=== PATIENT | male | born 1950 | race Caucasian/White ===

== ENCOUNTER 2016-08-30 09:21 | Inpatient (IN) | payer OTHER ==
[2016-08-15 10:46] VITALS: BMI 26.0
--- NOTE | 2016-08-15 11:22 | PAT Medication Instructions ---
Service Date Aug 15, 2016. Current Home Medication List Cholecalciferol (Vitamin D3), 1 TAB PO QAM Lactic Acid (Ammonium Lactate) (Amlactin), 1 DOSE TOP DAILY PRN for PRN Meloxicam (Mobic), 15 MG PO DAILY PRN for Pain Metoprolol Succ (Toprol Xl) (Toprol-Xl), 25 MG PO HS Pravastatin (Pravachol ), 20 MG PO QAM Sildenafil Citrate (Viagra), 100 MG PO PRN Medication Instructions For Your Scheduled Surgery - Check with surgeon for instructions: Meloxicam (Mobic), 15 MG PO DAILY PRN for Pain - Hold the following medications the morning of surgery: Sildenafil Citrate (Viagra), 100 MG PO PRN Cholecalciferol (Vitamin D3), 1 TAB PO QAM Lactic Acid (Ammonium Lactate) (Amlactin), 1 DOSE TOP DAILY PRN for PRN - Take the following medications the morning of surgery with a sip of water: Pravastatin (Pravachol ), 20 MG PO QAM - Take the following medications as scheduled the night before surgery: Sildenafil Citrate (Viagra), 100 MG PO PRN Metoprolol Succ (Toprol Xl) (Toprol-Xl), 25 MG PO HS Lactic Acid (Ammonium Lactate) (Amlactin), 1 DOSE TOP DAILY PRN for PRN If you have any questions please call us at [phone] (Madelin Young PA-C) or [phone] or [phone]
--- NOTE | 2016-08-15 11:44 | DIAGNOSTIC IMAGING REPORT ---
CHEST PREADMISSION(PA/LAT) HISTORY: Preop. COMPARISON: None. FINDINGS: The lungs are clear. Cardiac silhouette is normal in size. No pleural effusions. No pneumothorax. IMPRESSION: No acute process. Electronically signed by: Gene Alfaro M.D. 08/15/2016 11:43 AM Dictated Date/Time: 08/15/2016 11:42 AM
[2016-08-15 11:56] LABS: PARTIAL THROMBOPLASTIN RATIO 1.1; PROTHROMBIN TIME (PATIENT) 10.9 SECONDS (9.0-12.0)
[2016-08-15 12:18] LABS: BUN/CREATININE RATIO 16.5 (10-20); CALCIUM 8.6 mg/dl (8.5-10.1); CREATININE 1.1 mg/dl (0.60-1.40); POTASSIUM 4.3 mmol/L (3.5-5.1)
[2016-08-15 12:28] LABS: MEAN CELL VOLUME 88.2 fL (80-100); MEAN CORPUSCULAR HEMOGLOBIN 29.8 pg (25-34); MEAN CORPUSCULAR HGB CONC 33.8 g/dl (32-36); MEAN PLATELET VOLUME 14.2 fL (7.4-10.4); PLATELET COUNT 104 K/uL (130-400); WHITE BLOOD COUNT 4.84 K/uL (4.8-10.8)
[2016-08-15 12:30] LABS: COMPLETE YES; EOSINOPHIL % 0.9 %; LYMPHOCYTE % 16.5 %; NEUTROPHILS % 67.8 %; PLT ESTIMATE DECREASED; VARIANT LYM ABS # 0.55 K/uL; VARIANT LYMPHOCYTE % 11.3 %
--- NOTE | 2016-08-21 10:36 | HISTORY & PHYSICAL EXAMINATION ---
DATE OF ADMISSION: 08/30/2016 CHIEF COMPLAINT: Right hip pain. HISTORY OF PRESENT ILLNESS: A 66-year-old gentleman who presents for surgical treatment of his right hip. About a year and a half history of right hip pain and discomfort, which radiates down to his knee. He describes groin pain. He describes it has progressed over time. He has difficulty putting his shoes and socks on for the past couple years. The more he stands and walks, the more pain he has. He has a that has MS he is having more difficulty taking care of her. He has been treated with anti-inflammatories with minimal relief. He now presents for surgical treatment. PAST MEDICAL HISTORY: 1. Hypertension. 2. BPH. 3. Chronic thrombocytopenia. PAST SURGICAL HISTORY: None. ALLERGIES: No known drug allergies. CURRENT MEDICATIONS: Include metoprolol, Viagra, pravastatin. SOCIAL HISTORY: A 66-year-old male. He is . has MS. FAMILY HISTORY: Noncontributory. REVIEW OF SYSTEMS: Negative for diabetes, neurologic problems, vascular problems, bleeding disorders. Denies any chest pain or shortness of breath. He does have this known history of thrombocytopenia and his platelet count is 104. PHYSICAL EXAMINATION: GENERAL: Reveals a healthy, pleasant, middle-aged male. He looks to be in good health. HEAD, EYES, EARS, NOSE, AND THROAT EXAMINATION: Benign. NECK: Supple. No lymphadenopathy. LUNGS: Clear to auscultation. HEART: Regular rate and rhythm. ABDOMEN: Soft, nontender, nondistended. EXTREMITY EXAMINATION: Grossly neurovascularly intact except as follows: Examination of the right hip and leg reveals the patient walks with a slightly antalgic gait. Leg lengths clinically appear pretty equal. He does have pain with hip motion. He can internally rotate to neutral, external rotation to 20 degrees. Negative straight leg raise. A very small flexion contracture. X-RAYS: X-rays of the right hip were reviewed. It shows advanced right hip DJD. He has got complete loss of his superior joint space. ASSESSMENT: A 66-year-old male with advanced right hip degenerative joint disease that has gotten significantly worse over the past year. I think most of the pain radiating to his knee is coming from his hip. PLAN: We talked about treatment. He would like to have his right hip replacement. The risks and benefits of right total hip replacement were explained to the patient including but not limited to DVT, PE, , infection, neurological injury, vascular injury, bleeding problems, pain, limited range of motion, stiffness, failure to relieve symptoms, incomplete relief of symptoms, need for further surgery in the future, fracture, persistent pain, dislocation, need for revision surgery, etc. The patient understands and desires to proceed. Informed consent was obtained. The patient had preoperative workup. Chest x-ray was normal. EKG showed some sinus bradycardia. Labs were all normal except for slightly low platelet count. We did talk to him about taking his metoprolol the morning of surgery. He is planning to be [facility]. I will see him back 2 weeks postop.
[2016-08-30] VITALS (9 sets, daily range): BP systolic 99–151; BP diastolic 62–77; PULSE 45–57; TEMP 36.4–36.7; O2SAT 94–98; Ht 172.7 cm; Wt 77.4 kg
[~2016-08-30] VITALS: Ht 172.7 cm; Wt 77.4 kg
[~2016-08-30 09:21] MED LIST: ACETAMINOPHEN 500 MG TAB PO SCH; BUPIVACAINE 0.5 % 5 MG/1 ML PF 10ML VIAL ONE; CEFAZOLIN 2000 MG/60 ML D5W 60 ML IV SCH; CHOL1000 PO; FAMOTIDINE 20 MG TAB PO SCH; FENTANYL CITRATE INJ 50 MCG/1 ML 2 ML VIAL ONE; GABAPENTIN 300 MG CAP PO SCH; LACT1LOT3 TOP; LACTATED RINGER'S 1000ML 1,000 ML IV SCH; LACTATED RINGER'S 1000ML IV SCH; MELO7.5T5 PO; METO25TA3 PO; METOCLOPRAMIDE HCL 10 MG TAB PO SCH; MIDAZOLAM HCL 1 MG/ML 2ML VIAL ONE; PRAV20TA PO; PROPOFOL IV EMULSION 10 MG/ML 20 ML VIAL IV ONE; SCOPOLAMINE 1.5 MG TDSY TD SCH; SILD100T PO; TRANEXAMIC ACID INJ 1,000 MG in SODIUM CHLORIDE 0.9% 100ML 100 ML IV SCH
[2016-08-30] MEDS ORDERED: BUPIVACAINE/EPINEPHRINE 0.5% MPF 1:200,000 30 ML VIAL ONE ×2 (09:57→11:15)
[2016-08-30] MEDS ORDERED: BACITRACIN 50000 UNIT VIAL ONE (09:57)
[2016-08-30] MEDS ORDERED: MoRPHine SULFATE PF 1 MG/ML 10 ML AMP/VIAL ONE (11:28)
--- NOTE | 2016-08-30 11:37 | History & Physical Bridge Note ---
H&P Re-Evaluation Bridge Note: I have examined the patient, reviewed the History & Physical and in the interval since the performance of the History & Physical I have noted the following changes of clinical significance: No changes noted
[2016-08-30] MEDS ORDERED: LACTATED RINGER'S 1000ML 500 ML IV PRN (12:47)
[2016-08-30] MEDS ORDERED: NALOXONE HCL INJ 1 MG in SODIUM CHLORIDE 0.9% 1000ML 1,000 ML IV PRN (12:47)
[2016-08-30] MEDS ORDERED: SODIUM CHLORIDE 0.9% 1000ML 1,000 ML IV PRN (12:47)
[2016-08-30] MEDS ORDERED: NALOXONE HCL INJ 0.08 MG in SYRINGE 1.8 ML IV PRN (12:47)
[2016-08-30] MEDS ORDERED: EpHEDrine SULFATE INJ 50 MG/ML AMP ONE (12:49)
[2016-08-30] MEDS ORDERED: EpHEDrine SULFATE INJ 50 MG/ML AMP IV PRN (13:00)
[2016-08-30] MEDS ORDERED: NALOXONE HCL 0.4 MG/1 ML VIAL/CARP IV PRN (13:00)
[2016-08-30] MEDS ORDERED: KETOROLAC TROMETHAMINE 30 MG/ML VIAL IV. PRN (13:00)
[2016-08-30] MEDS ORDERED: MoRPHine SULFATE 2 MG/ML CARP IV PRN (13:00)
[2016-08-30] MEDS ORDERED: NO NARCOTICS OR SEDATIVES SCH (13:00)
[2016-08-30] MEDS ORDERED: DiphenhydrAMINE HCL 50 MG/ML VIAL IV PRN (13:00)
[2016-08-30] MEDS ORDERED: MEPERIDINE HCL 25 MG/ML CARP IV PRN (13:00)
[2016-08-30] MEDS ORDERED: NALBUPHINE HCL INJ 10 MG/ML AMP IV PRN (13:00)
[2016-08-30] MEDS ORDERED: ONDANSETRON INJ 2 MG/ML 2 ML VIAL IV PRN (13:00)
[2016-08-30] MEDS ORDERED: MoRPHine SULFATE PF 1 MG/ML 10 ML AMP/VIAL EPI PRN (13:00)
[2016-08-30] MEDS ORDERED: MAGNESIUM HYDROXIDE SUSP 30 ML UDC PO PRN (13:15)
[2016-08-30] MEDS ORDERED: NON-FORMULARY MEDICATION (Sildenafil Citrate (Viagra) 100 MG) PO SCH (13:15)
[2016-08-30] MEDS ORDERED: SILVER SULFADIAZINE 1% CR 50 GM JAR EXT PRN (13:15)
[2016-08-30] MEDS ORDERED: BISACODYL 10 MG SUPP PR PRN (13:15)
[2016-08-30] MEDS ORDERED: TAMSULOSIN HCL 0.4 MG CAP PO PRN (13:15)
[2016-08-30] MEDS ORDERED: ALUMINUM/MAGNESIUM/SIMETH (MAALOX MAX) 30 ML UDC PO PRN (13:15)
[2016-08-30] MEDS ORDERED: AMMONIUM LACTATE 12% LOTION 225 GM BTL EXT PRN (13:15)
--- NOTE | 2016-08-30 13:15 | [facility] Post Operative Brief Note ---
Immediate Operative Summary Operative Date Aug 30, 2016. Pre-Operative Diagnosis DEGENERATIVE JOINT DISEASE RIGHT HIP Post-Operative Diagnosis SAME PREOP Procedure(s) Performed RIGHT TOTAL HIP ARTHROPLASTY Surgeon DR. Zain CORONEL [employer] Operator Surgeon(s) Aron STATON PAC Estimated Blood Loss 300mL Findings Right Hip DJD Specimens RIGHT HIP BONE AND TISSUE Drains None Anesthesia Spinal Complication(s) None Disposition Recovery Room / PACU
--- NOTE | 2016-08-30 13:42 | DIAGNOSTIC IMAGING REPORT ---
SINGLE VIEW PELVIS; SINGLE VIEW RIGHT HIP CLINICAL HISTORY: Postoperative examination. FINDINGS: An AP portable view of the pelvis and a crosstable lateral portable view of the right hip are obtained. A bipolar right hip arthroplasty is in near-anatomic alignment. 2 cortical lag screws transfix the acetabular cup. No acute fracture is seen. Mild arthritic change is noted in the left hip. There are expected postoperative findings overlying the right hip including skin clips, subcutaneous gas, and soft tissue swelling. A fully catheter is in place. IMPRESSION: Expected postoperative findings status post right hip arthroplasty. No acute fracture is seen. Electronically signed by: Gonzalo Moctezmua M.D. 08/30/2016 1:41 PM Dictated Date/Time: 08/30/2016 1:39 PM
--- NOTE | 2016-08-30 13:58 | Anesthesiology Progress Note ---
Anesthesia Post Op Note Date & Time Aug 30, 2016 at 13:58 Vital Signs Pain Intensity: 0 Vital Signs Past 12 Hours Date Time Temp Pulse Resp B/P Pulse Ox O2 Delivery O2 Flow Rate FiO2 08/30/16 13:50 55 18 124/71 100 Nasal Cannula 2 08/30/16 13:40 51 16 126/69 100 Nasal Cannula 3 08/30/16 13:30 47 16 143/71 100 Nasal Cannula 3 08/30/16 13:20 54 16 137/61 100 Nasal Cannula 3 08/30/16 13:14 36.2 59 16 133/62 99 Mask 10 08/30/16 09:45 36.7 53 20 151/77 98 Room Air Notes Mental Status: alert / awake / arousable, participated in evaluation Pt Amnestic to Procedure: Yes Nausea / Vomiting: adequately controlled Pain: adequately controlled Airway Patency, RR, SpO2: stable & adequate BP & HR: stable & adequate Hydration State: stable & adequate Anesthetic Complications: no major complications apparent
--- NOTE | 2016-08-30 14:46 | OPERATIVE REPORT ---
DATE OF OPERATION: 08/30/2016 SURGEON: Dr. Travis Noriega. NEGATIVE ASSEMBLER: REGINA Alvarez PREOPERATIVE DIAGNOSIS: Right hip degenerative joint disease. POSTOPERATIVE DIAGNOSIS: Same. PROCEDURE PERFORMED: Right ceramic on highly cross-linked polyethylene uncemented total hip arthroplasty. COMPLICATIONS: None. ESTIMATED BLOOD LOSS: 300 mL. FLUID REPLACEMENT: 1750 mL. ANESTHESIA: Spinal. DRAINS: None. SPECIMENS: Right hip femoral head sent for pathology. OPERATIVE INDICATIONS: The patient is a 66-year-old fairly active gentleman who has had an about year and half history of progressively increasing right hip pain and discomfort. It became unresponsive to conservative treatment. It is really affecting his ability to maintain an active lifestyle. X-rays revealed advanced right hip DJD. The patient elected to proceed with operative treatment. OPERATIVE FINDINGS: Operative findings revealed advanced right hip DJD. He had grade 4 [id number] disease of the femoral head and acetabulum. Not a lot of osteophytes. Moderate size joint effusion. OPERATIVE IMPLANTS: Operative implants consisted of: 1. A Biomet G7 size 54-mm acetabular shell. 2. An apex hole eliminator. 3. A 6.5 cancellous acetabular screws, one 35 mm length and one at 20 mm in length. 4. A highly cross-linked polyethylene liner with a 54 mm outer diameter, 36 mm inner diameter with a hidalgo placed very inferior and posterior. 5. A DePuy size 12 small stature AML femoral stem. 6. A +5/36 mm ceramic articular ball. OPERATIVE PROCEDURE: The patient was taken to the operating room, identified and placed on the operating table in the supine position. All contact areas were appropriately padded. IV antibiotics were provided by the anesthesia team. A spinal anesthetic had been implemented in the holding area. Way catheter was placed in sterile fashion. The patient was then placed in the left lateral decubitus position. An axillary roll was placed. Stulberg hip positioner was used for positioning. Right hip and leg were then prepped and draped in the usual sterile fashion. A posterolateral approach to the right hip was then performed through a curvilinear incision centered over the greater trochanter. Sharp dissection was carried out through the subcutaneous tissue down to the level of the IT band and gluteal fascia. The IT band and gluteal fascia were then incised longitudinally in line with skin incision. The underlying greater trochanteric bursa was excised. The piriformis and external rotators were tagged and taken off the posterior aspect of the femur. Great care was taken throughout the procedure to protect the sciatic nerve at all times. Posterior capsulotomy was then performed leaving a large flap for later repair. The hip was internally rotated and dislocated. Femoral neck osteotomy cut was made with the final cut 14 mm above the lesser trochanter. The femoral head was removed and sent for pathology. The femur was retracted anteriorly. Attention was then drawn to the acetabulum. The acetabular labrum was excised. The pulvinar fat was excised. Sequential reaming of the acetabulum was then performed beginning with a size 45 and progressing up to a 53. A 54-mm Biomet G7 acetabular shell was then placed in about 40 degrees of lateral opening and 20 degrees of anteversion. It was fixed with two 6.5 cancellous acetabular screws. A trial liner was placed. Attention was then drawn to the femur. The proximal femur was entered with cookie cutter followed by canal finder and lateralizing reamer. Sequential reaming of the femur was then performed beginning with a size 9 and progressing up to 11.5. We really got pretty good chatter at 11. We then broached beginning with a size 10.5 small broach and then into the 12 small. We got good metaphyseal fit. We then trialed the hip. The +5/36 mm articular ball seemed to provide appropriate leg lengths and soft tissue tension. It was fully stable in full extension and external rotation, flexion to 90 degrees, and internal rotation to about [address] a hidalgo very inferior and posterior to maximize his stability in flexion. Attention was then drawn toward placement of the permanent components. All trial components were removed. An apex hole eliminator was placed. A highly cross-linked polyethylene liner with a hidalgo placed inferior and posterior was then placed. A DePuy 12 small stature AML femoral stem was impacted in position. A +5/36 mm ceramic articular ball was placed. Hip was located and once again found to be stable. Attention was then drawn toward closing. The wound was irrigated with copious amounts of pulsatile lavage solution. I did inject locally with 60 mL of 0.5% Marcaine with epinephrine. The posterior capsule and external rotators were repaired through drill holes in the posterior trochanter with #2 Ti-Cron suture. The IT band and gluteal fascia were then closed with #1 PDS suture in running fashion. The subcutaneous tissue was then closed with 2 layers, the deep layer #1 Vicryl suture and the subcutaneous tissue with 2-0 Dexon suture in a buried interrupted fashion. Skin was then closed with skin carter. Leg was then cleaned and dried and a sterile dressing with Xeroform, 4 x 4, ABD pad and foam tape was applied. The patient then transferred to the recovery room in stable condition. The patient tolerated the procedure well with no complications. All needle and sponge counts were correct at the end of the operation. I attest to the content of the Intraoperative Record and any orders documented therein. Any exceptio ns are noted below.
[2016-08-30] MEDS: CHECK SCOPOLAMINE PATCH PLACEMENT SCH ×2 (15:47→23:55)
[2016-08-30] MEDS: D5W AND 1/2NSS + 20MEQ KCL 1,000 ML IV SCH ×2 (15:47→23:55)
--- NOTE | 2016-08-30 15:59 | PROGRESS NOTE ---
DATE: 08/30/2016 DATE: 08/30/2016. SUBJECTIVE: A 66-year-old gentleman postop from a right total hip replacement. He is doing well. Not having any pain yet. No chest pain or shortness of breath. Not feeling dizzy or lightheaded. OBJECTIVE: VITAL SIGNS: Temperature is 36.4. Vital signs stable. PHYSICAL EXAMINATION: GENERAL: Reveals a healthy, pleasant, middle-aged male. He is sitting up in bed, looks pretty comfortable. LUNGS: Clear to auscultation. HEART: Regular rate and rhythm. ABDOMEN: Soft, nontender, nondistended. EXTREMITIES: Grossly neurovascularly intact except as follows: Examination of the right lower extremity reveals the leg to be well aligned. Leg lengths were equal. Hip is located. He can dorsiflex and plantarflex his foot appropriately. He is neurologically intact. X-RAYS: X-rays of the right hip from recovery room were reviewed. It shows right uncemented total hip arthroplasty. The components looked to be in good position. No signs of problems. ASSESSMENT: A 66-year-old gentleman postop from a right total hip replacement, doing well. Hip is located. He is neurologically intact. Pain is controlled. PLAN: 1. DVT prophylaxis including thigh-high TEDs, SCDs, and aspirin twice a day. 2. PT/OT. Weight bear as tolerated. Right total hip protocol. 3. IV antibiotics x24 hours. 4. Pain control. Doing well with current pain regimen. 5. Disposition. He is planning to be discharged to home likely with some home health once adequately recovered.
[2016-08-30] MEDS: FERROUS GLUCONATE 324 MG TAB PO SCH (17:58)
[2016-08-30] MEDS: KETOROLAC TROMETHAMINE 15 MG/ML VIAL IV. SCH ×2 (17:59→23:55)
[2016-08-30] MEDS ORDERED: PNEUMOCOCCAL ADMINISTRATION CHARGE ONE (18:30)
[2016-08-30] MEDS ORDERED: PNEUMOCOCCAL POLYSACCHARIDES 25 MCG/0.5 ML VIAL/SYR IM. ONE (18:30)
[2016-08-30] MEDS ORDERED: TRANEXAMIC ACID INJ 1,000 MG in SODIUM CHLORIDE 0.9% 100ML 100 ML IV SCH (19:00)
[2016-08-30] MEDS ORDERED: METOPROLOL SUCC 25MG EXT REL TAB PO SCH (21:00)
[2016-08-30] MEDS: ASPIRIN 325 MG ECTAB PO SCH (21:01)
[2016-08-30] MEDS: DOCUSATE SODIUM 100 MG CAP PO SCH (21:01)
[2016-08-30] MEDS: CEFAZOLIN IV 1,000 MG in DEXTROSE 5% 50ML 50 ML IV SCH (21:02)
[2016-08-30] MEDS: ACETAMINOPHEN 500 MG TAB PO SCH (21:02)
[2016-08-31] VITALS (9 sets, daily range): BP systolic 110–120; BP diastolic 60–61; PULSE 57–59; TEMP 36.3–36.7; O2SAT 86–98
[2016-08-31] MEDS: CEFAZOLIN IV 1,000 MG in DEXTROSE 5% 50ML 50 ML IV SCH (03:56)
[2016-08-31] MEDS: KETOROLAC TROMETHAMINE 15 MG/ML VIAL IV. SCH ×2 (05:52→11:28)
[2016-08-31] MEDS: ACETAMINOPHEN 500 MG TAB PO SCH (05:52)
[2016-08-31] MEDS ORDERED: DiphenhydrAMINE HCL 50 MG/ML VIAL IV PRN (06:00)
[2016-08-31] MEDS ORDERED: MoRPHine SULFATE 2 MG/ML CARP IV PRN (06:00)
[2016-08-31] MEDS ORDERED: DC INTRASPINAL MORPHINE SCH (06:00)
[2016-08-31] MEDS ORDERED: OXYCODONE HCL IR 5 MG TAB (IMMEDIATE RELEASE) PO PRN (06:00)
[2016-08-31] MEDS ORDERED: ZOLPIDEM TARTRATE 5 MG TAB PO PRN (06:00)
[2016-08-31] MEDS ORDERED: ONDANSETRON INJ 2 MG/ML 2 ML VIAL IV PRN (06:00)
[2016-08-31] MEDS ORDERED: METOCLOPRAMIDE HCL INJ 5 MG/ML 2 ML VIAL IV PRN (06:00)
[2016-08-31 06:47] LABS: BUN/CREATININE RATIO 12.3 (10-20); CALCIUM 7.5 mg/dl (8.5-10.1); CREATININE 1.1 mg/dl (0.60-1.40); POTASSIUM 4.4 mmol/L (3.5-5.1)
[2016-08-31 06:51] LABS: HEMATOCRIT 37.7 % (42-52); MEAN CELL VOLUME 89.8 fL (80-100); MEAN CORPUSCULAR HEMOGLOBIN 29.5 pg (25-34); MEAN CORPUSCULAR HGB CONC 32.9 g/dl (32-36); MEAN PLATELET VOLUME 13.3 fL (7.4-10.4); PLATELET COUNT 92 K/uL (130-400); WHITE BLOOD COUNT 6.97 K/uL (4.8-10.8)
[2016-08-31 06:54] LABS: BASO % 0.1 %; BASO ABS # 0.01 K/uL (0-0.2); COMPLETE YES; IG% 0.1 %; LARGE PLATELETS 1+; LYMPH % 6.5 %; LYMPH ABS # 0.45 K/uL (1.2-3.4); MONO % 5.7 %; NEUT % 86.6 %; PLT ESTIMATE DECREASED
[2016-08-31] MEDS: CHECK SCOPOLAMINE PATCH PLACEMENT SCH (08:00)
[2016-08-31] MEDS ORDERED: RXC5 PO (08:03)
[2016-08-31] MEDS ORDERED: ACET-1138 PO (08:03)
[2016-08-31] MEDS ORDERED: ASPEC325 PO (08:03)
--- NOTE | 2016-08-31 08:05 | Discharge Instructions ---
Discharge Instructions Date of Service Aug 31, 2016. Admission Reason for Admission: Right Hip Degenerative Joint Disease Discharge Discharge Diagnosis / Problem: Right HIp Replacement Discharge Goals Goal(s): Decrease discomfort, Improve function, Increase independence, Improve disease control, Therapeutic intervention Activity Recommendations Activity Limitations: per Instructions/Follow-up section (Total Hip PRecautions ) Weightbearing Status: Right weightbearing . Instructions / Follow-Up Instructions / Follow-Up ACTIVITY RECOMMENDATIONS: Physical Therapy: * Aggressive physical therapy is not usually needed. You will learn to take care of yourself safely and walk. * Follow the "Hip Precautions Instructions." * In some cases, the family welfare social work professor at the hospital will arrange to have a therapist come to your house for the first couple of weeks to help you learn these skills. * You need to practice on your own or with the help of a family member as needed. * When you learn these skills, most of the therapy can be done on your own. Home Exercise: * You were shown a series of exercises in the hospital. Do these exercises three to four times each day including the exercises you were shown in physical therapy. Walking: * Get up and walk several times each day. For the first four weeks, try not to stand or walk for more than one hour at a time. If you do stand or walk for more than one hour, you will not hurt anything, but your leg will likely swell. * As you feel comfortable, you may change from the walker or crutches to a cane and then to independent walking. MEDICATIONS: New Medicine: * You will likely be taking one or more of these medicines: 1. Oxycodone - Take, as directed, when you need it, every four to six hours to control your pain. 2. Aspirin - Thins your blood to lessen the chance of forming a blood clot. * The most common side effects of pain medicine and iron are nausea and constipation. If nausea or constipation is too much of a problem or if you have any questions about your new medicines or doses, call [facility] at [phone]. We will try to help you manage these issues. VERY IMPORTANT TO READ AND REVIEW" Pain: * The immediate post-operative period after hip replacement surgery is often quite painful. * You are given a prescription for pain medicine. You should take it, as directed, when you need it, especially before physical therapy and before going to bed. Pain that interferes with sleep is very common and can last several months. * You will likely need pain medicine for the first two to four weeks. It will not stop all of the pain. The pain will lessen and as you feel better, you may change to milder pain medicine such as Tylenol. * The most common side effects of pain medicine are nausea and constipation, so don't take more than you need. SPECIAL CARE INSTRUCTIONS: TEDs/Elastic Stockings: * The white elastic stockings help limit swelling and prevent blood clots from forming in your legs. The more you wear them, the more they work. * Wear them for six weeks. Prevention of Infection: * Take antibiotics one hour before any dental cleaning, dental work, urological procedure, gastrointestinal procedure or any invasive surgery in order to prevent your new joint from getting infected. * You may get the antibiotics from the doctor performing the procedure or you may call our office at before and we will call in a prescription to the pharmacy of your choice. Things to Watch For: * Drainage from the incision site that occurs more than one week after your surgery. * Severely increased leg pain or swelling. * Increased redness at the incision site. * Fever above 102 degrees Fahrenheit. * Unusual chest pain or shortness of breath. * Unusual pain or burning with urination. Call [facility] at with any of the above problems or if you have any questions about your medicines or recovery. FOLLOW UP VISIT: Make an appointment to see your doctor for approximately two weeks after surgery for a progress check and staple removal by calling the office at . Current Hospital Diet Patient's current hospital diet: Regular Diet Discharge Diet Recommended Diet: Regular Diet Procedures Procedures Performed: RIGHT TOTAL HIP ARTHROPLASTY Pending Studies Studies pending at discharge: no Medical Emergencies . Who to Call and When: Medical Emergencies: If at any time you feel your situation is an emergency, please call [phone] immediately. . Non-Emergent Contact Non-Emergency issues call your: Surgeon . "Provider Documentation" section prepared by Travis Noriega. VTE Core Measure Inpt VTE Proph given/why not?: Other Anticoagulation, T.E.D. Stockings, SCD's
--- NOTE | 2016-08-31 08:36 | PROGRESS NOTE ---
DATE: 08/31/2016 DATE: 08/31/2016. SUBJECTIVE: A 66-year-old gentleman postop day 1 from right hip replacement. He is doing well. He denies any significant pain. No chest pain or shortness of breath. Not feeling dizzy or lightheaded. OBJECTIVE: VITAL SIGNS: Temperature 36.3. Vital signs stable. PHYSICAL EXAMINATION: GENERAL: Reveals a healthy, pleasant, middle-aged male. He is lying in bed and looks comfortable. LUNGS: Clear to auscultation. HEART: Regular rate and rhythm. ABDOMEN: Soft, nontender, nondistended. EXTREMITY EXAMINATION: Grossly neurovascularly intact except as follows: Examination of the right lower extremity reveals the leg to be well aligned. Dressing is clean, dry and intact. His hip is located. He is neurologically intact. LABORATORY DATA: Hemoglobin 12.4, hematocrit 37.7. Electrolytes are stable. ASSESSMENT: A 66-year-old gentleman postop day 1 from right total hip replacement, doing well. His pain is controlled. Hip is located. He is neurologically intact. PLAN: 1. DVT prophylaxis including thigh-high TEDs, SCDs, and aspirin twice a day. 2. PT/OT. Weightbearing as tolerated. Right total hip protocol. 3. Pain control. Doing well with current pain regimen. 4. Disposition: Plan to discharge to home with some home health once adequately recovered.
[2016-08-31] MEDS: FERROUS GLUCONATE 324 MG TAB PO SCH (08:40)
[2016-08-31] MEDS: D5W AND 1/2NSS + 20MEQ KCL 1,000 ML IV SCH (08:40)
[2016-08-31] MEDS: ASPIRIN 325 MG ECTAB PO SCH (08:40)
[2016-08-31] MEDS: DOCUSATE SODIUM 100 MG CAP PO SCH (08:40)
[2016-08-31] MEDS ORDERED: MULTIVITAMIN TAB PO SCH (09:00)
[2016-08-31] MEDS ORDERED: TAPENTADOL ER 50 MG TABCR PO SCH (09:00)
[2016-08-31] MEDS ORDERED: PANTOprazole SOD 40 MG TAB PO SCH (09:00)
[2016-08-31] MEDS ORDERED: CHOLECALCIFEROL 400 INTER.UNIT TAB PO SCH ×2 (09:00)
[2016-08-31] MEDS ORDERED: PRAVASTATIN SOD 20 MG TAB PO SCH (09:00)
--- NOTE | 2016-09-04 15:41 | DISCHARGE SUMMARY ---
ADMITTING PHYSICIAN AND SURGEON: Dr. Noriega. ADMITTING DIAGNOSIS: Right hip degenerative joint disease. SURGERY PERFORMED: Right total hip arthroplasty. SECONDARY DIAGNOSES: Includes hypertension, benign prostatic hypertrophy, chronic thrombocytopenia. HISTORY AND PHYSICAL EXAMINATION: Well documented in the patient's chart. HOSPITAL COURSE: The patient was admitted on 08/30/2016 underwent total hip arthroplasty. He tolerated procedure well. There were no complications. He was transferred to the PACU postoperatively and later to the orthopedic floor for further care. He was given Ancef for antibiotic prophylaxis, CEHLSEY stockings, SCDs and aspirin for DVT prophylaxis. Hemoglobin, hematocrit and vital signs were monitored during his hospital stay and remained stable. He did not require any blood transfusions. There were no complications. By postoperative day 1, he was tolerating a general diet, pain was controlled with oral pain medicine. He was participating in physical therapy and had no signs or symptoms of deep vein thrombosis. On postop day 1, he was discharged home and set up with home health services. He was given printed discharge instructions including prescriptions for Extra-Strength Tylenol, aspirin 325 mg b.i.d., oxycodone. Continue his home medicines. Continue physical therapy, weightbearing as tolerated, CHELSEY stockings, total hip precautions and follow up in 10-12 days or sooner if there are problems or concerns.
== END 2016-08-31 11:49 | disposition home health service (06) | DRG 470 ==
LOC: ENRESERVTM → ENRESERVDT → C.ACU 09:21 → C.3E 11:20
PROVIDERS: ADMIT Orthopaedic Surgery Sports Medicine; ATTEND Orthopaedic Surgery Sports Medicine
PROC: 0SR904A Replacement of Right Hip Joint with Ceramic on Polyethylene Synthetic Substitute, Uncemented, Open Approach (ICD-10-PCS; principal; 2016-08-30 11:15)
DX: M16.11 Unilateral primary osteoarthritis, right hip (principal); I10 Essential (primary) hypertension; N40.0 Benign prostatic hyperplasia without lower urinary tract symptoms; D69.6 Thrombocytopenia, unspecified

== ENCOUNTER 2016-08-31 21:12 | Inpatient (IN) | payer OTHER ==
[~2016-08-31] VITALS: Ht 172.7 cm; Wt 78.9 kg
[~2016-08-31 21:12] MED LIST changes: +ACET-1138 PO; -ACETAMINOPHEN 500 MG TAB PO SCH; +ASPEC325 PO; -BUPIVACAINE 0.5 % 5 MG/1 ML PF 10ML VIAL ONE; -CEFAZOLIN 2000 MG/60 ML D5W 60 ML IV SCH; -FAMOTIDINE 20 MG TAB PO SCH; -FENTANYL CITRATE INJ 50 MCG/1 ML 2 ML VIAL ONE; -GABAPENTIN 300 MG CAP PO SCH; -LACTATED RINGER'S 1000ML 1,000 ML IV SCH; -LACTATED RINGER'S 1000ML IV SCH; -METOCLOPRAMIDE HCL 10 MG TAB PO SCH; -MIDAZOLAM HCL 1 MG/ML 2ML VIAL ONE; -PROPOFOL IV EMULSION 10 MG/ML 20 ML VIAL IV ONE; +RXC5 PO; -SCOPOLAMINE 1.5 MG TDSY TD SCH; -TRANEXAMIC ACID INJ 1,000 MG in SODIUM CHLORIDE 0.9% 100ML 100 ML IV SCH
[2016-08-31] MEDS ORDERED: OPTIRAY 320 IV PRN (21:30)
[2016-08-31 21:51] LABS: VEN BLOOD GAS BASE EXCESS 1.2 mmol/L; VENOUS BLOOD GAS PCO2 44 mmHg (38.0-50.0); VENOUS BLOOD GAS PO2 29 mmHg
--- NOTE | 2016-08-31 21:53 | DIAGNOSTIC IMAGING REPORT ---
CHEST ONE VIEW PORTABLE CLINICAL HISTORY: Acute change in mental status COMPARISON STUDY: 08/15/2016 FINDINGS: The heart is at the upper limits of normal in size. There is no lobar consolidation. There is no overt failure. There are no pleural effusions. Minimally increased markings at the level of the left cardiophrenic angle, likely represent a summation of fat pad and atelectatic change.[ IMPRESSION: No active disease in the chest. Electronically signed by: Gokul Peralta M.D. 08/31/2016 9:51 PM Dictated Date/Time: 08/31/2016 9:50 PM
[2016-08-31 21:57] LABS: ISTAT CREATININE 1.1 mg/dl (0.6-1.3); ISTAT HEMOGLOBIN 11.9 g/dl (14.0-18.0); ISTAT IONIZED CALCIUM 1.09 mmol/l (1.12-1.32)
[2016-08-31 21:57] LABS: INR 1.2 (0.9-1.1); PARTIAL THROMBOPLASTIN RATIO 1.2; PROTHROMBIN TIME (PATIENT) 13.1 SECONDS (9.0-12.0)
[2016-08-31 22:04] LABS: BUN/CREATININE RATIO 14.8 (10-20); CALCIUM 7.7 mg/dl (8.5-10.1); CREATININE 1.2 mg/dl (0.60-1.40); POTASSIUM 4.3 mmol/L (3.5-5.1)
[2016-08-31 22:10] LABS: HEMATOCRIT 36.2 % (42-52); MEAN CELL VOLUME 88.1 fL (80-100); MEAN CORPUSCULAR HEMOGLOBIN 29.9 pg (25-34); PLATELET COUNT 90 K/uL (130-400); RED BLOOD COUNT 4.11 M/uL (4.7-6.1); WHITE BLOOD COUNT 8.96 K/uL (4.8-10.8)
[2016-08-31 22:11] LABS: BASO % 0.1 %; BASO ABS # 0.01 K/uL (0-0.2); COMPLETE YES; EOS % 0.7 %; IG% 0.1 %; LARGE PLATELETS 1+; LYMPH % 5.6 %; MONO % 5.8 %; NEUT % 87.7 %; PLT ESTIMATE DECREASED
--- NOTE | 2016-08-31 22:16 | DIAGNOSTIC IMAGING REPORT ---
CT HEAD WITHOUT CONTRAST (CT) CLINICAL HISTORY: Acute change in mental status COMPARISON STUDY: No previous studies for comparison. TECHNIQUE: Axial CT of the brain is performed from the vertex to the skull base. IV contrast was not administered for this examination. CT DOSE: 537.48 mGy.cm FINDINGS: No intra or extra-axial mass lesions are visualized. There is no CT evidence of acute cortical infarction. There is no evidence of midline shift. There is no acute hemorrhage. No calvarial fractures are visualized. There are minimal white matter hypodensities likely on a small vessel basis. There is no evidence of pathologic ventricular dilatation. There is no evidence of acute sinusitis IMPRESSION: No acute intracranial findings Electronically signed by: Gokul Peralta M.D. 08/31/2016 10:15 PM Dictated Date/Time: 08/31/2016 10:14 PM
[2016-08-31 22:20] LABS: URINE APPEARANCE CLEAR (CLEAR); URINE BILIRUBIN NEG (NEG); URINE COLOR YELLOW; URINE NITRITE NEG (NEG); URINE SPECIFIC GRAVITY 1.011 (1.000-1.030); UROBILINOGEN NEG (NEG); ZZUR CULT IF INDIC CLEAN CATCH NO
--- NOTE | 2016-08-31 22:24 | DIAGNOSTIC IMAGING REPORT ---
CT ANGIOGRAM OF THE CHEST CLINICAL HISTORY: Hypoxia COMPARISON STUDY: Chest x-ray dated 08/31/2016 TECHNIQUE: Following the IV administration of 111 mL of Optiray-320, CT angiogram of the thorax was performed from the thoracic inlet to the lung bases utilizing the pulmonary embolus protocol. Images are reviewed in the axial, sagittal, and coronal planes. IV contrast was administered without complication. MIP imaging was performed. CT DOSE: 294.62 mGy.cm FINDINGS: There is cholelithiasis. There is 11 mm hypodensity within the right hepatic lobe. There are borderline enlarged hilar lymph nodes. There is no pathologic mediastinal or axillary lymphadenopathy. There was no evidence of thoracic aortic dilatation. There were no pulmonary artery filling defects to indicate acute pulmonary embolism. There are small bilateral pleural effusions. There are dependent atelectatic changes. There is calcified granuloma within the left apex. There is an ill-defined 6 mm pleural-based nodule within the right upper lobe. There is a small area of right middle lobe perihilar consolidation, likely inflammatory. IMPRESSION: 1. No CT evidence of acute pulmonary embolism 2. Area of right middle lobe perihilar consolidation, likely inflammatory 3. Small bilateral pleural effusions and bibasal atelectasis 4. Borderline enlarged hilar lymph nodes 5. 6 mm pleural-based right upper lobe pulmonary nodule 6. Cholelithiasis 7. A 3 month follow-up CT scan is recommended, to reevaluate the 6 mm right upper lobe pulmonary nodule, and right perihilar consolidation with adjacent prominent lymph nodes. Electronically signed by: Gokul Peralta M.D. 08/31/2016 10:23 PM Dictated Date/Time: 08/31/2016 10:16 PM
[2016-08-31 22:27] LABS: MANUAL MICROSCOPIC REQUIRED? NO; REVIEW REQ? NO
[2016-08-31 22:30] LABS: VEN BLD GAS O2 SATURATION < 60.0 %
[2016-08-31] MEDS ORDERED: ASPIRIN 81 MG CHEW PO STA (22:51)
[2016-08-31] MEDS ORDERED: SODIUM CHLORIDE 0.9% 1000ML 1,000 ML IV STA (22:51)
[2016-09-01] VITALS (9 sets, daily range): BP systolic 113–140; BP diastolic 61–79; PULSE 64–80; TEMP 36.5–36.7; O2SAT 93–99; Ht 172.7 cm; Wt 78.9 kg
--- NOTE | 2016-09-01 00:26 | EMERGENCY ROOM VISIT NOTE ---
History Report prepared by Ana: Constanza Cortes Under the Supervision of: Dr. Angel Squires D.O. 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 The patient came to the ED via ambulance from home. Per nursing staff, EMS reported that upon their arrival the patient's oxygen saturation was in the low 80s on room air. Nursing staff reports that upon arrival to the ED, the patient's oxygen saturation was 83% on room air. The patient had his right hip replaced yesterday and he was discharged this morning. The patient states that he feels like he was doing well. He states that he was sitting on the recliner and falling asleep watching TV, so he is not sure what prompted his to call the ambulance. He has not taken anything other than Tylenol for the pain because he has not felt that he needed it. Per nursing staff, the patient's came home and found that he had an altered mental status, slurred speech, and confusion. The patient denies cough, rhinorrhea, sore throat, chest pain, shortness of breath, abdominal pain, and any weakness of his arms or legs. Additionally, the patient experienced nausea and vomiting two days ago, but nothing since then. The patient also denies starting any new medications recently. He also denies any recent trauma to his head. Source of History: patient, EMS, nursing staff Onset: SENIOR COMPENSATION ANALYST Position: head Quality: other (altered mental status) Timing: other (sudden) Associated Symptoms: No SOB, No abdominal pain, No chest pain, No cough, No sorethroat, No weakness Note: slurred speech, no rhinorrhea Review of Systems See HPI for pertinent positives & negatives. A total of 10 systems reviewed and were otherwise negative. Past Medical & Surgical Medical Problems: (1) Right Hip DJD Family History Angina Diabetes mellitus Social History Smoking Status: Never Smoker Marital Status: Housing Status: lives with family Current/Historical Medications Scheduled Acetaminophen (Tylenol Extra Strength), 1,000 MG PO Q8 Aspirin (Aspirin), 325 MG PO BID Cholecalciferol (Vitamin D3), 1 TAB PO QAM Metoprolol Succ (Toprol Xl) (Toprol-Xl), 25 MG PO HS Pravastatin (Pravachol ), 20 MG PO QAM Sildenafil Citrate (Viagra), 100 MG PO PRN Scheduled PRN Lactic Acid (Ammonium Lactate) (Amlactin), 1 DOSE TOP DAILY PRN for PRN Meloxicam (Mobic), 15 MG PO DAILY PRN for Pain Oxycodone HCl (Oxycodone HCl), 5 MG PO Q4H PRN for Pain Allergies Coded Allergies: NO KNOWN DRUG ALLERGIES (Verified Allergy, Unknown, NKDA, 08/30/16) Physical Exam Vital Signs Date Time Temp Pulse Resp B/P Pulse Ox O2 Delivery O2 Flow Rate FiO2 08/31/16 22:18 92 20 169/93 94 Nasal Cannula 2.0 08/31/16 21:24 81 08/31/16 21:16 96 Nasal Cannula 2.0 08/31/16 21:15 37.0 77 16 132/73 83 Room Air Physical Exam GENERAL: alert, sitting up in bed on nasal cannula oxygen, well appearing, well nourished, no acute distress, non-toxic EYE EXAM: normal conjunctiva, PERRL and EOM's intact OROPHARYNX: no exudate, no erythema, lips, buccal mucosa, and tongue normal and mucous membranes are moist NECK: supple, no nuchal rigidity, no adenopathy, non-tender LUNGS: Clear to auscultation. Normal chest wall mechanics HEART: no murmurs, S1 normal and S2 normal ABDOMEN: abdomen soft, non-tender, normo-active bowel sounds, no masses, no rebound or guarding. BACK: Back is symmetrical on inspection and there is no deformity, no midline tenderness, no CVA tenderness. SKIN: no rashes and no bruising UPPER EXTREMITIES: upper extremities are grossly normal. LOWER EXTREMITIES: No pitting edema, surgical dressing over right hip. NEURO EXAM: Normal sensorium, cranial nerves II-XII intact, normal speech, no weakness of arms. No drift. Finger to nose intact. Gross sensation intact. Medical Decision & Procedures ER Provider Diagnostic Interpretation: Xray results per the radiologist and my interpretation. Other results have been interpreted by the radiologist and reviewed by me. CHEST ONE VIEW PORTABLE IMPRESSION: No active disease in the chest. Electronically signed by: Gokul Peralta M.D. 08/31/2016 9:51 PM Dictated Date/Time: 08/31/2016 9:[address] HEAD WITHOUT CONTRAST (CT) IMPRESSION: No acute intracranial findings Electronically signed by: Gokul Peralta M.D. 08/31/2016 10:15 PM Dictated Date/Time: 08/31/2016 10:[address] ANGIOGRAM OF THE CHEST IMPRESSION: 1. No CT evidence of acute pulmonary embolism 2. Area of right middle lobe perihilar consolidation, likely inflammatory 3. Small bilateral pleural effusions and bibasal atelectasis 4. Borderline enlarged hilar lymph nodes 5. 6 mm pleural-based right upper lobe pulmonary nodule 6. Cholelithiasis 7. A 3 month follow-up CT scan is recommended, to reevaluate the 6 mm right upper lobe pulmonary nodule, and right perihilar consolidation with adjacent prominent lymph nodes. Electronically signed by: Gokul Peralta M.D. 08/31/2016 10:23 PM Dictated Date/Time: 08/31/2016 10:16 PM Laboratory Results 08/31/16 21:34 Red Blood Count 4.11, Mean Corpuscular Volume 88.1, Mean Corpuscular Hemoglobin 29.9, Mean Corpuscular Hemoglobin Concent 34.0, Mean Platelet Volume 13.0, Neutrophils (%) (Auto) 87.7, Lymphocytes (%) (Auto) 5.6, Monocytes (%) (Auto) 5.8, Eosinophils (%) (Auto) 0.7, Basophils (%) (Auto) 0.1, Neutrophils # (Auto) 7.86, Lymphocytes # (Auto) 0.50, Monocytes # (Auto) 0.52, Eosinophils # (Auto) 0.06, Basophils # (Auto) 0.01 08/31/16 21:34 Test 08/31/16 21:34 08/31/16 21:38 08/31/16 21:50 White Blood Count 8.96 K/uL (4.8-10.8) Red Blood Count 4.11 M/uL (4.7-6.1) Hemoglobin 12.3 g/dL (14.0-18.0) Hematocrit 36.2 % (42-52) Mean Corpuscular Volume 88.1 fL (80-100) Mean Corpuscular Hemoglobin 29.9 pg (25-34) Mean Corpuscular Hemoglobin Concent 34.0 g/dl (32-36) Platelet Count 90 K/uL (130-400) Mean Platelet Volume 13.0 fL (7.4-10.4) Neutrophils (%) (Auto) 87.7 % Lymphocytes (%) (Auto) 5.6 % Monocytes (%) (Auto) 5.8 % Eosinophils (%) (Auto) 0.7 % Basophils (%) (Auto) 0.1 % Neutrophils # (Auto) 7.86 K/uL (1.4-6.5) Lymphocytes # (Auto) 0.50 K/uL (1.2-3.4) Monocytes # (Auto) 0.52 K/uL (0.11-0.59) Eosinophils # (Auto) 0.06 K/uL (0-0.5) Basophils # (Auto) 0.01 K/uL (0-0.2) RDW Standard Deviation 40.3 fL (36.4-46.3) RDW Coefficient of Variation 12.5 % (11.5-14.5) Immature Granulocyte % (Auto) 0.1 % Immature Granulocyte # (Auto) 0.01 K/uL (0.00-0.02) Platelet Estimate DECREASED Large Platelets 1+ Prothrombin Time 13.1 SECONDS (9.0-12.0) Prothromb Time International Ratio 1.2 (0.9-1.1) Activated Partial Thromboplast Time 31.7 SECONDS (21.0-31.0) Partial Thromboplastin Ratio 1.2 Venous Blood pH 7.40 (7.36-7.41) Venous Blood Partial Pressure CO2 44 mmHg (38.0-50.0) Venous Blood Partial Pressure O2 29 mmHg Venous Blood HCO3 26 mmol/L Venous Blood Oxygen Saturation < 60.0 % Venous Blood Base Excess 1.2 mmol/L Est Creatinine Clear Calc Drug Dose 59.4 ml/min Estimated GFR () 73.1 Estimated GFR (Non- 63.1 BUN/Creatinine Ratio 14.8 (10-20) Calcium Level 7.7 mg/dl (8.5-10.1) Total Bilirubin 2.3 mg/dl (0.2-1) Direct Bilirubin 0.4 mg/dl (0-0.2) Aspartate Amino Transf (AST/SGOT) 38 U/L (15-37) Alanine Aminotransferase (ALT/SGPT) 25 U/L (12-78) Alkaline Phosphatase 69 U/L (45-117) Troponin I 0.547 ng/ml (0-0.045) Total Protein 5.8 gm/dl (6.4-8.2) Albumin 3.0 gm/dl (3.4-5.0) Bedside Hemoglobin 11.9 g/dl (14.0-18.0) Bedside Hematocrit 35 % (42-52) Bedside Sodium 135 mEq/L (135-144) Bedside Potassium 4.3 mEq/L (3.3-5.0) Bedside Chloride 98 mEq/L (101-112) Bedside Total CO2 23 mEq/l (24-31) Anion Gap 19.0 mmol/L (16-25) Bedside Blood Urea Nitrogen 18 mg/dl (7-18) Bedside Creatinine 1.1 mg/dl (0.6-1.3) Bedside Glucose (other) 99 mg/dl (70-99) Bedside Ionized Calcium (Junior) 1.09 mmol/l (1.12-1.32) Urine Color YELLOW Urine Appearance CLEAR (CLEAR) Urine pH 5.0 (4.5-7.5) Urine Specific Chavies 1.011 (1.000-1.030) Urine Protein NEG (NEG) Urine Glucose (UA) NEG (NEG) Urine Ketones NEG (NEG) Urine Occult Blood 3+ (NEG) Urine Nitrite NEG (NEG) Urine Bilirubin NEG (NEG) Urine Urobilinogen NEG (NEG) Urine Leukocyte Esterase TRACE (NEG) Urine WBC (Auto) 5-10 /hpf (0-5) Urine RBC (Auto) 10-30 /hpf (0-4) Urine Hyaline Casts (Auto) 1-5 /lpf (0-5) Urine Epithelial Cells (Auto) 10-20 /lpf (0-5) Urine Bacteria (Auto) NEG (NEG) Laboratory results per my review. Medications Administered Medications (Trade) Dose Ordered Sig/Jackie Route Start Time Stop Time Status Last Admin Dose Admin Aspirin 324 mg 324 mg NOW STAT PO 08/31/16 22:51 08/31/16 22:52 DC 08/31/16 23:11 324 MG Sodium Chloride (Nss 1000ml) 1,000 ml @ 999 mls/hr Q1H1M STAT IV 08/31/16 22:51 08/31/16 23:51 DC 08/31/16 23:19 999 MLS/HR ECG Indication: altered mental status Rate (beats per minute): 73 Rhythm: sinus rhythm Findings: ST depression (Inferior), no ectopy, other (normal intervals) Comparison ECG Date: 08/15/2016 Change: ST depressions are new ED Course ED COURSE: Vital signs were reviewed and showed hypertension and hypoxia. The patients medical record was reviewed The above diagnostic studies were performed and reviewed. ED treatments and interventions as stated above. 2114: The patient was evaluated in room B4. A complete history and physical examination was performed. 2249: Upon reevaluation, the patient is resting comfortably. I discussed my findings with the patient and he understands and agrees with the treatment plan. Based on the patients age, coexisting illnesses, exam and lab findings the decision to treat as an inpatient was made. The patient remained stable while under my care. The patient will be evaluated for further management. 2250: Ordered Sodium Chloride 1000 ml @ 999 mls/hr IV, Aspirin 324 mg PO 5: I reviewed the patient's case with Dr. Evaristo Corea. He will evaluate the patient for further management. Medical Decision Differential diagnoses includes but is not limited to toxic, metabolic, infectious, traumatic, cardiac, neurologic, hematologic, psychiatric and inflammatory etiologies. Patient is a 66-year-old male who presents the ER for altered mental status associated with hypoxia. He had surgery yesterday and was discharged earlier today for a right hip replacement. Upon presentation he is hypoxic at 82% on room air. He has no previous history of asthma or COPD. He took no narcotics today per the patient. CT PE was performed and was negative with the recent surgery. CT head was unremarkable. CBC was unremarkable. BMP was remarkable for slightly elevated bilirubin at 2.3 but he denies any abdominal pain. Troponin was elevated at 0.5. His abdominal exam was benign. EKG did show slight ST depressions in the inferior which were new. Again he denies any chest pain or shortness breath. UA shows no significant infection. ABG was unremarkable. She was given a dose of aspirin here. He took some at home. Again he has no chest pain or shortness of breath. I question the true cause of this elevated discharged from the weather secondary to ischemia or from his hypoxic event. Patient was updated at bedside along with his friend and is admitted to internal medicine. Consults Time Called: 2250 Consulting Physician: Dr. Evaristo Corea Returned Call: [phone] I reviewed the patient's case with Dr. Evaristo Corea. He will evaluate the patient for further management. Impression Primary Impression: Altered mental status Additional Impressions: Hypoxia Elevated troponin Scribe Attestation The scribe's documentation has been prepared under my direction and personally reviewed by me in its entirety. I confirm that the note above accurately reflects all work, treatment, procedures, and medical decision making performed by me. Departure Information Dispostion Being Evaluated By Hospitalist Referrals Kristal Kapadia M.D. (PCP) Patient Instructions [facility] Problem Qualifiers Primary Impression: Altered mental status Altered mental status type: unspecified Qualified Codes: R41.82 - Altered mental status, unspecified
[2016-09-01] MEDS ORDERED: ACETAMINOPHEN 325 MG TAB PO PRN (00:30)
[2016-09-01] MEDS ORDERED: ONDANSETRON INJ 2 MG/ML 2 ML VIAL IV PRN (00:30)
[2016-09-01 00:44] LABS: CKMB/CK RATIO 0.4 (0-3.0)
[2016-09-01] MEDS ORDERED: OXYCODONE HCL IR 5 MG TAB (IMMEDIATE RELEASE) PO PRN (00:45)
[2016-09-01] MEDS ORDERED: CALCIUM CHLORIDE 10% 10 ML SYR IV STA (01:24)
[2016-09-01] MEDS ORDERED: CALCIUM CHLORIDE 10% 1,000 MG in SODIUM CHLORIDE 0.9% 50ML 50 ML IV STA (03:11)
[2016-09-01] MEDS: NSS + 20MEQ KCL 1000ML 1,000 ML IV SCH ×3 (03:53→20:19)
--- NOTE | 2016-09-01 05:44 | HISTORY & PHYSICAL EXAMINATION ---
DATE OF ADMISSION: 09/01/2016 PRIMARY CARE PHYSICIAN: Dr. Kapadia. CHIEF COMPLAINT: Acute confusion this evening. HISTORY OF PRESENT COMPLAINT: He is a 66-year-old male, with a significant past medical history including mild mitral aortic regurgitation, elevated PSA, anemia due to chronic blood loss, hyperlipidemia and apparently has been complaining and was noted to be acutely confused this evening. Apparently, he underwent a right total hip replacement on Friday and Friday morning he went home. He slept for about 6 hours at home and did not take any narcotics for the pain and then when he woke up, he was noted to be confused. He cannot remember, but he was not behaving normally as per the family members and the nephew. At that point, he was brought into the Emergency Room. On the way, he was noted to have hypoxemia without any significant shortness of breath and in the ER he was noted to be hypoxic at 83% on room air. He was given oxygen, he was feeling better and his confusion resolved. He denies to have any chest pain, any palpitations or any shortness of breath. No nausea or vomiting. He has pain in the right hip, but no fever, chills or rigors. No problem with urine and/or bowel habits. He denies to have any rash. In the Emergency Room, he was noted to have EKG changes with flattening of the T-waves in II, III, V2 to V4 and his troponin was elevated to 0.5. Also his platelet was noted to be 90 which has been on lower side as usual. CAT scan of the chest did not show any evidence of pulmonary embolism. VBG pO2 was 29, but pH was normal. From that point, he was advised to telemetry unit for continuation of medical care. PAST MEDICAL HISTORY: Significant for anemia due to chronic blood loss, history of premature atrial contractions, mild mitral aortic regurgitation, hyperlipidemia and elevated PSA. PAST SURGICAL HISTORY: Significant for tonsillectomy and adenoid surgery as a child and recent right total hip arthroplasty. FAMILY HISTORY: Father had diabetes and hypertension. An aunt has diabetes too. SOCIAL HISTORY: He is . He has one child. He does not use any tobacco. He uses alcohol as needed. ALLERGIES: NKDA. MEDICATIONS: He has been taking Mobic 15 mg daily as needed, Viagra 100 mg as needed, Tylenol extra strength as directed, aspirin 325 mg daily, vitamin D3 1000 units daily, Toprol-XL 25 mg at night, oxycodone 5 mg every four hours as needed and Pravachol 20 mg daily. REVIEW OF SYSTEMS: Other systems reviewed are unremarkable except those mentioned in history of present complaint. PHYSICAL EXAMINATION: GENERAL: On examination in the Emergency Room, he was not having any acute distress. VITAL SIGNS: Temperature 36.7, pulse 92, blood pressure 169/93, saturation 94% on two liters nasal cannula. It was 83% on room air. HEENT: Unremarkable. NECK: Supple. No JVD, no bruits. CHEST: Clear to auscultation bilaterally. HEART: S1, S2 with a 2/6 systolic murmur over precordium. ABDOMEN: Soft, benign, nontender, no organomegaly. Bowel sounds are present. EXTREMITIES: Negative for any edema. MUSCULOSKELETAL: Right hip movement was painful in one direction, but no other acute arthritis noted. CENTRAL NERVOUS SYSTEM: Alert, awake, oriented x3, no focal, sensory and/or motor deficits appreciated. LABORATORY DATA: Noted today; white count was 8.96, H\T\H 12.3/36.2 and platelet was 90; his platelet is around 100. Sodium 135, potassium 4.3, chloride 98, carbon dioxide 23, BUN 18, creatinine 1.1, glucose 99, calcium 7.7, total bilirubin 2.3, direct bilirubin 0.4, AST 38, ALT 25, total CK was 927, MB 3.8, CK-MB 2, ratio 0.4 and troponin was 0.547. Albumin 3.0 coagulation INR 1.2, PTT ratio 1.2. UA examination is negative. RBC was high as 10-30. EKG was in sinus rhythm, rate of 66 per minute, normal axis, T-wave flattening involving the III, aVF and also V2-V4 that was new compared with the EKG prior to surgery. Chest x-ray; no active disease in the chest. CT of the thorax; no CT evidence of acute pulmonary embolism, area of right middle lobe perihilar consolidation, likely inflammatory with small bilateral pleural effusion and bibasilar atelectasis, borderline enlarged hilar lymph nodes, 6 mm pleural based right upper lobe pulmonary nodule, cholelithiasis. A 3-month followup CT scan was advised. CT of the head; no acute intracranial findings. IMPRESSION AND PLAN: 1. Acute metabolic encephalopathy with hypoxemia. Pulmonary embolism has been ruled out.Could be due to post op atelectasis and doubt any narcotic induced phenomenon. Cannot rule out any fat embolism. He has 2 major criteria for fat embolism. One is his confusion, other one is hypoxemia and at least one minor criteria, that is low platelet which is not acute. He does not have any rash. Will admit the patient to telemetry unit. We will give him intravenous fluid and replacement of his electrolytes.His confusion is cleared in ER during my examination.Incentive Spirometry ordered. 2. EKG changes with increased troponin; doubt any acute non-ST segment myocardial infarction, but we will cycle cardiac enzymes, echocardiogram. The case was discussed with Dr. Gil, not for any IV heparin at this time. Continue beta lora.If troponin increases and or ECHO otherwise ,will need cardiology evaluation. 3. Status post right hip surgery on last Friday. No acute findings except pain. We will ask the orthopedic service to continue care while in the hospital and PT evaluation. 4. History of atrial arrhythmias, on beta lora. Continue the beta lora at this time. Does not have any acute events at this time. 5. Gastrointestinal prophylaxis with Protonix. 6. Deep venous thrombosis prophylaxis with subcutaneous heparin. 7. Code status: He will be a full code. In my clinical assessment, the beneficiary meets criteria as per CMS for 2 midnights stay in the hospital. HAYLIE
[2016-09-01] MEDS ORDERED: HEPARIN SOD 5000 UNIT/0.5 ML CARP SQ SCH (06:00)
[2016-09-01] MEDS: ACETAMINOPHEN 500 MG TAB PO SCH ×3 (06:02→20:20)
[2016-09-01] MEDS: ASPIRIN 325 MG ECTAB PO SCH ×2 (07:12→20:19)
[2016-09-01] MEDS: CHOLECALCIFEROL 1000 INTER.UNIT TAB PO SCH (07:12)
[2016-09-01] MEDS: PRAVASTATIN SOD 20 MG TAB PO SCH (07:12)
[2016-09-01 08:08] LABS: CKMB/CK RATIO 0.6 (0-3.0)
--- NOTE | 2016-09-01 10:50 | ECHOCARDIOGRAM REPORT ---
*NOTICE TO RECEIVING REPUBLICAN AGENCY This information is strictly Confidential and protected under [place] law. [place] law prohibits you from making any further disclosure of this information unless further disclosure is expressly permitted by the written consent of the person to whom it pertains or is authorized by law. A general authorization for the release of medical or other information is not sufficient for this purpose. Hospital accepts no responsibility if the information is made available to any other person, INCLUDING THE PATIENT. Interpretation Summary * Name: JOSÉ VERA Study Date: 09/01/2016 09:41 AM BP: 132/69 mmHg * Patient Location: C.2E\S\E204\S\1 HR: 101 * : 1950 (M/d/yyyy) Gender: Male Height: 68 in * Age: 66 yrs Ethnicity: [place] Weight: 163 lb * Ordering Physician: Yusuf Loera * Referring Physician: Self, Referred * Performed By: Perla Arreola [facility] * * Reason For Study: S/P HIP SURGERY / EKG CHANGES / ELEVATED TROPONIN * BSA: 1.9 m2 * -- Conclusions -- * No change compared to study of 08/26/16. * Normal LV chamber size with mild concentric LVH. * Normal LV systolic function, EF 55-60%. * No segmental left ventricular wall motion abnormalities are noted. * Grade II diastolic dysfunction. * Aortic valve sclerosis moderate, without significant aortic valvular stenosis. Moderate aortic regurgitation. * Mild mitral regurgitation. * Mild tricuspid regurgitation. * Mild left atrial enlargement. Procedure Details * A complete two-dimensional transthoracic echocardiogram was performed (2D, M-mode, Doppler and color flow Doppler). Left Ventricle * The left ventricle is normal in size. * There is mild concentric left ventricular hypertrophy. * Ejection Fraction = 55-60%. * Left ventricular systolic function is normal. * No segmental left ventricular wall motion abnormalities are noted. * The left ventricular wall motion is normal. Right Ventricle * The right ventricular cavity size is normal (basal dimension <4.2 cm in right ventricular apical 4-chamber view). * The right ventricular systolic function is normal as assessed by tricuspid annular plane systolic excursion (TAPSE) (normal >1.5 cm). Atria * The left atrium is mildly dilated. * Right atrial size is normal. * No ASD detected; PFO is not assessed. Mitral Valve * The mitral valve anatomy is normal. * There is no mitral valve stenosis. * There is mild mitral regurgitation. Tricuspid Valve * The tricuspid valve anatomy is normal. * There is no tricuspid stenosis. * There is mild tricuspid regurgitation. Aortic Valve * The aortic valve is tricuspid. The leaflet thickness if normal. There is no aortic stenosis, and no significant insufficiency. * Aortic valve sclerosis moderate, without significant aortic valvular stenosis. * No hemodynamically significant valvular aortic stenosis. * Moderate aortic regurgitation. Pulmonic Valve * The pulmonary valve is not well seen, but the Doppler examination is normal without significant regurgitation or stenosis. Great Vessels * The aortic root and proximal ascending aorta are normal sized. Pericardium/Pleural * There is no pericardial effusion. Left Ventricular Diastolic Function * Diastolic dysfunction, Grade II (pseudonormalization pattern). MMode 2D Measurements and Calculations IVSd 1.3 cm IVSs 1.7 cm LVIDd 4.5 cm LVIDs 3.0 cm LVPWd 1.1 cm LVPWs 1.2 cm IVS/LVPW 1.1 FS 32.2 % EDV(Teich) 90.1 ml ESV(Teich) 35.6 ml EF(Teich) 60.5 % EDV(cubed) 88.2 ml ESV(cubed) 27.5 ml EF(cubed) 68.8 % % IVS thick 34.6 % % LVPW thick 5.9 % LV mass(C)d 193.6 grams LV mass(C)dI 103.3 grams/m\S\2 LV mass(C)s 149.6 grams LV mass(C)sI 79.8 grams/m\S\2 SV(Teich) 54.6 ml SI(Teich) 29.1 ml/m\S\2 SV(cubed) 60.7 ml SI(cubed) 32.4 ml/m\S\2 Ao root diam 3.5 cm Ao root area 9.8 cm\S\2 ACS 1.3 cm LA dimension 4.1 cm LA/Ao 1.2 LVOT diam 2.0 cm LVOT area 3.0 cm\S\2 LVAd ap4 34.8 cm\S\2 LVLd ap4 8.5 cm EDV(MOD-sp4) 116.4 ml EDV(sp4-el) 121.9 ml LVAs ap4 22.3 cm\S\2 LVLs ap4 6.8 cm ESV(MOD-sp4) 60.0 ml ESV(sp4-el) 62.4 ml EF(MOD-sp4) 48.4 % EF(sp4-el) 48.8 % LVAd ap2 36.0 cm\S\2 LVLd ap2 8.4 cm EDV(MOD-sp2) 122.6 ml EDV(sp2-el) 130.6 ml LVAs ap2 21.8 cm\S\2 LVLs ap2 6.7 cm ESV(MOD-sp2) 58.3 ml ESV(sp2-el) 59.7 ml EF(MOD-sp2) 52.4 % EF(sp2-el) 54.3 % LVLd %diff -0.55 % EDV(MOD-bp) 120.4 ml LVLs %diff -0.60 % ESV(MOD-bp) 59.4 ml EF(MOD-bp) 50.6 % SV(MOD-sp4) 56.4 ml SI(MOD-sp4) 30.1 ml/m\S\2 SV(MOD-sp2) 64.3 ml SI(MOD-sp2) 34.3 ml/m\S\2 SV(MOD-bp) 60.9 ml SI(MOD-bp) 32.5 ml/m\S\2 SV(sp4-el) 59.5 ml SI(sp4-el) 31.7 ml/m\S\2 SV(sp2-el) 70.9 ml SI(sp2-el) 37.8 ml/m\S\2 Doppler Measurements and Calculations MV E max belgica 79.3 cm/sec MV A max belg[place] 112.2 cm/sec MV E/A 0.71 MV P1/2t max belg[place] 128.3 cm/sec MV P1/2t 57.2 msec MVA(P1/2t) 3.8 cm\S\2 MV dec slope 657.3 cm/sec\S\2 MV dec time 0.16 sec Ao V2 max 187.2 cm/sec Ao max PG 14.0 mmHg Ao max PG (full) 8.4 mmHg YESENIA(V,A) 1.9 cm\S\2 YESENIA(V,D) 1.9 cm\S\2 AI max belg[place] 357.8 cm/sec AI max PG 51.2 mmHg AI dec slope 169.5 cm/sec\S\2 AI P1/2t 618.3 msec LV V1 max PG 5.6 mmHg LV V1 max 118.7 cm/sec PA V2 max 130.7 cm/sec PA max PG 6.8 mmHg TR max belg[place] 335.1 cm/sec
--- NOTE | 2016-09-01 12:42 | Progress Note ---
Internal Med Progress Note Date of Service: Sep 01, 2016. Provider Documentation: SUBJECTIVE: Patient is doing well. Mental status- AAOX3, back to baseline No chest pain, SOB, cough, fever, chills, nausea, vomiting, abdominal pain. Off oxygen Tele-no events OBJECTIVE: Vital Signs-as noted below Exam: General-AAOX3, no distress Neck-Supple, No JVD Lungs-AEBE, no wheezing, rhonchi, rales Heart-S1, S2 normal, Murmur + Extremities-S/P Right total hip replacement Neuro-No focal deficits Lab data as noted below. ASSESSMENT & PLAN: IMPRESSION AND PLAN: TRANSIENT CONFUSION : Resolved Likely secondary to post operative status. Patient was discharged on POD # 1 after right total hip replacement. Noted to be confused by family, but by the time he was in ED, he was back to his baseline. AAOX3, today. Did not take narcotics for pain per patient. -CT head - Negative -Monitor POST OPERATIVE HYPOXIA - Transient --> Resolved Noted to be hypoxic with SaO2 80s in ambulance. No complaints of SOB, cough, chest pain per patient -Now off oxygen, On RA -CXR- no acute abnormalities, CT scan chest- No PE, Area of right middle lobe perihilar consolidation, likely inflammatory, small b/l pleural effusions, bibasal atelectasis, Borderline enlarged hilar LNs, 6 mm Pleural based Rt Upper lobe pulmonary nodule. Recommends : [address] scan Clinically no signs of pneumonia -Monitor EKG CHANGES WITH ELEVATED TROPONIN : -Done as part of work up for ED visit for transient confusion/Hypoxia post operative day 2. No cardiac symptoms -EKG on presentation/today compared to EKG on 08/15/16 shows- T wave flattening in leads AV4, V2-V6; Troponin - 0.547, 0.599 -Likely demand ischemia in post operative setting with elevated CPK 900s on presentation -Echo- EF 55-60%, Mild LVH, Gd II diastolic dysfunction, Mild MR, TR, Moderate AR, no new wall motion abnormalities ELEVATED CPK Presented with CPK of 927-->773 -IV fluids -Monitor S/P RIGHT HIP REPLACEMENT POD # 2. Done on 08/30/16 -Pain well controlled. Not using narcotics -PT/OT -DVT prophylaxis- ASA 325 mg PO BID -Ortho consulted HX OF ATRIAL ARRHYTHMIAS -On beta lora -Monitor GI PROPHYLAXIS -On protonix DVT PROPHYLAXIS ASA 325 mg PO BID CODE STATUS Full code DISPOSITION Continue with tele monitoring Probable dc in AM. Patient is eager to be discharged Vital Signs: Date Time Temp Pulse Resp B/P Pulse Ox O2 Delivery O2 Flow Rate FiO2 09/01/16 12:24 94 Room Air 09/01/16 11:37 36.6 66 18 121/65 93 Room Air 09/01/16 08:01 99 Nasal Cannula 2.0 09/01/16 07:45 36.7 64 18 132/69 99 2.0 09/01/16 04:50 36.6 72 16 133/61 96 Nasal Cannula 2.0 09/01/16 04:00 Nasal Cannula 2.0 09/01/16 01:30 36.6 80 16 140/71 95 Nasal Cannula 2.0 09/01/16 00:30 74 17 154/89 09/01/16 00:00 75 18 100 2.0 08/31/16 23:30 76 28 98 Nasal Cannula 2.0 08/31/16 23:00 74 96 Nasal Cannula 2.0 08/31/16 22:18 92 20 169/93 94 Nasal Cannula 2.0 08/31/16 21:24 81 08/31/16 21:16 96 Nasal Cannula 2.0 08/31/16 21:15 37.0 77 16 132/73 83 Room Air Lab Results: Results Past 24 Hours Test 08/31/16 21:34 08/31/16 21:38 08/31/16 21:50 09/01/16 00:17 Range/Units White Blood Count 8.96 4.8-10.8 K/uL Red Blood Count 4.11 4.7-6.1 M/uL Hemoglobin 12.3 14.0-18.0 g/dL Hematocrit 36.2 42-52 % Mean Corpuscular Volume 88.1 80-100 fL Mean Corpuscular Hemoglobin 29.9 25-34 pg Mean Corpuscular Hemoglobin Concent 34.0 32-36 g/dl Platelet Count 90 130-400 K/uL Mean Platelet Volume 13.0 7.4-10.4 fL Neutrophils (%) (Auto) 87.7 % Lymphocytes (%) (Auto) 5.6 % Monocytes (%) (Auto) 5.8 % Eosinophils (%) (Auto) 0.7 % Basophils (%) (Auto) 0.1 % Neutrophils # (Auto) 7.86 1.4-6.5 K/uL Lymphocytes # (Auto) 0.50 1.2-3.4 K/uL Monocytes # (Auto) 0.52 0.11-0.59 K/uL Eosinophils # (Auto) 0.06 0-0.5 K/uL Basophils # (Auto) 0.01 0-0.2 K/uL RDW Standard Deviation 40.3 36.4-46.3 fL RDW Coefficient of Variation 12.5 11.5-14.5 % Immature Granulocyte % (Auto) 0.1 % Immature Granulocyte # (Auto) 0.01 0.00-0.02 K/uL Platelet Estimate DECREASED Large Platelets 1+ Prothrombin Time 13.1 9.0-12.0 SECONDS Prothromb Time International Ratio 1.2 0.9-1.1 Activated Partial Thromboplast Time 31.7 21.0-31.0 SECONDS Partial Thromboplastin Ratio 1.2 Venous Blood pH 7.40 7.36-7.41 Venous Blood Partial Pressure CO2 44 38.0-50.0 mmHg Venous Blood Partial Pressure O2 29 mmHg Venous Blood HCO3 26 mmol/L Venous Blood Oxygen Saturation < 60.0 % Venous Blood Base Excess 1.2 mmol/L Sodium Level 136 136-145 mmol/L Potassium Level 4.3 3.5-5.1 mmol/L Chloride Level 102 98-107 mmol/L Carbon Dioxide Level 23 21-32 mmol/L Anion Gap 11.0 19.0 16-25 mmol/L Blood Urea Nitrogen 18 7-18 mg/dl Creatinine 1.20 0.60-1.40 mg/dl Est Creatinine Clear Calc Drug Dose 59.4 ml/min Estimated GFR () 73.1 Estimated GFR (Non- 63.1 BUN/Creatinine Ratio 14.8 10-20 Random Glucose 90 70-99 mg/dl Calcium Level 7.7 8.5-10.1 mg/dl Total Bilirubin 2.3 0.2-1 mg/dl Direct Bilirubin 0.4 0-0.2 mg/dl Aspartate Amino Transf (AST/SGOT) 38 15-37 U/L Alanine Aminotransferase (ALT/SGPT) 25 12-78 U/L Alkaline Phosphatase 69 45-117 U/L Total Creatine Kinase 927 39-308 U/L Creatine Kinase MB 3.8 0.5-3.6 ng/ml Creatine Kinase MB Ratio 0.4 0-3.0 Troponin I 0.547 0-0.045 ng/ml Total Protein 5.8 6.4-8.2 gm/dl Albumin 3.0 3.4-5.0 gm/dl Bedside Hemoglobin 11.9 14.0-18.0 g/dl Bedside Hematocrit 35 42-52 % Bedside Sodium 135 135-144 mEq/L Bedside Potassium 4.3 3.3-5.0 mEq/L Bedside Chloride 98 101-112 mEq/L Bedside Total CO2 23 24-31 mEq/l Bedside Blood Urea Nitrogen 18 7-18 mg/dl Bedside Creatinine 1.1 0.6-1.3 mg/dl Bedside Glucose (other) 99 70-99 mg/dl Bedside Ionized Calcium (Junior) 1.09 1.12-1.32 mmol/l Urine Color YELLOW Urine Appearance CLEAR CLEAR Urine pH 5.0 4.5-7.5 Urine Specific Brea 1.011 1.000-1.030 Urine Protein NEG NEG Urine Glucose (UA) NEG NEG Urine Ketones NEG NEG Urine Occult Blood 3+ NEG Urine Nitrite NEG NEG Urine Bilirubin NEG NEG Urine Urobilinogen NEG NEG Urine Leukocyte Esterase TRACE NEG Urine WBC (Auto) 5-10 0-5 /hpf Urine RBC (Auto) 10-30 0-4 /hpf Urine Hyaline Casts (Auto) 1-5 0-5 /lpf Urine Epithelial Cells (Auto) 10-20 0-5 /lpf Urine Bacteria (Auto) NEG NEG Test 09/01/16 07:03 Range/Units Total Creatine Kinase 773 39-308 U/L Creatine Kinase MB 4.4 0.5-3.6 ng/ml Creatine Kinase MB Ratio 0.6 0-3.0 Troponin I 0.599 0-0.045 ng/ml
[2016-09-01 14:15] LABS: CKMB/CK RATIO 0.6 (0-3.0)
[2016-09-01 19:58] LABS: CKMB/CK RATIO 0.6 (0-3.0)
[2016-09-01] MEDS ORDERED: METOPROLOL SUCC 25MG EXT REL TAB PO SCH (21:00)
[2016-09-02] VITALS (7 sets, daily range): BP systolic 128–143; BP diastolic 68–80; PULSE 69–80; TEMP 36.6–36.7; O2SAT 93–100
[2016-09-02 02:33] LABS: CKMB/CK RATIO 0.6 (0-3.0)
[2016-09-02] MEDS: ACETAMINOPHEN 500 MG TAB PO SCH ×2 (05:44→13:04)
[2016-09-02 06:39] LABS: BUN/CREATININE RATIO 12.4 (10-20); CREATININE 1.1 mg/dl (0.60-1.40); POTASSIUM 4.1 mmol/L (3.5-5.1)
--- NOTE | 2016-09-02 07:10 | ORTHOPEDIC CONSULTATION ---
DATE OF CONSULTATION: 09/01/2016 SUBJECTIVE: A 66-year-old gentleman postop day #2 from right total hip replacement. This was just done on Friday. He was discharged yesterday. He did pretty well in therapy. He went home and took a fairly significant nap and woke up confused. He was brought to the Emergency Room. He was found to be hypoxic apparently on the way to the ER. By the time he got there the confusion has pretty much cleared. He has been admitted and had extensive workup, which had all been negative. He denies any confusion this morning. His pain is controlled. Denies any chest pain or shortness of breath. Not feeling dizzy or lightheaded. OBJECTIVE: VITAL SIGNS: Temperature is 36.7. Vital signs stable. O2 sat is 99%. GENERAL: Physical examination reveals a pleasant, middle-aged male. He is sitting in his bedside chair and looks comfortable. EXTREMITIES: Examination of the right hip and leg reveals the dressing to be clean, dry and intact. His hip is located. He is neurologically intact. LABORATORY DATA: Hemoglobin is 11.9 and hematocrit 36.2. Electrolytes are stable. IMAGING STUDIES: CT scan of the head is negative. CT scan of the chest shows no pulmonary emboli. ASSESSMENT: A 66-year-old gentleman 2 days out from a total hip replacement with a bit of confusion. Workup has been negative. Certainly could be some component of fat emboli, but the confusion is cleared and it is mostly just likely postoperative confusion due to anesthesia medicines and disrupted sleep pattern. The patient is currently asymptomatic. PLAN: From the orthopedic standpoint, I think he is acceptable to be discharged back to home with some home health at any time if medically stable. DVT prophylaxis will be thigh-high TEDs, SCDs, and aspirin for 6 weeks. He is going to have some home health. We will change his dressing today. He is already scheduled to see me back in clinic in about 2 weeks. Any of orthopedic questions can be directed to me at [phone]. [facility]
[2016-09-02] MEDS: NSS + 20MEQ KCL 1000ML 1,000 ML IV SCH (07:29)
[2016-09-02 07:44] LABS: HEMATOCRIT 32.8 % (42-52); MEAN CELL VOLUME 88.2 fL (80-100); MEAN CORPUSCULAR HEMOGLOBIN 29.8 pg (25-34); MEAN CORPUSCULAR HGB CONC 33.8 g/dl (32-36); MEAN PLATELET VOLUME 12.8 fL (7.4-10.4); PLATELET COUNT 78 K/uL (130-400); RED BLOOD COUNT 3.72 M/uL (4.7-6.1); WHITE BLOOD COUNT 5.88 K/uL (4.8-10.8)
--- NOTE | 2016-09-02 07:53 | PROGRESS NOTE ---
DATE: 09/02/2016 SUBJECTIVE: A 66-year-old gentleman postop day 3 from right total hip replacement. He was readmitted postop day 1 in the evening for confusion. This has resolved. He has got no problems. Denies any chest pain or shortness of breath. Not feeling dizzy or lightheaded. OBJECTIVE: VITAL SIGNS: Temperature 36.7. O2 sats 93% on room air. GENERAL: Reveals a pleasant middle-aged male. He is sitting on the bed and eating breakfast. EXTREMITIES: Examination of the right hip reveals the wound to be clean, dry and intact. His hip is located. He can dorsiflex and plantarflex his foot appropriately. LABORATORY DATA: Electrolytes are normal. ASSESSMENT: A 66-year-old gentleman postop day 3 from right total hip replacement complicated by a brief episode of confusion which is not too unusual in the immediate postoperative period. His workup has been negative. Troponin has been slightly elevated of unclear significance. He has had no chest pain or symptoms of cardiac problem. PLAN: 1. DVT prophylaxis including thigh-high TEDs, SCDs and aspirin twice a day. 2. PT/OT. Weight bear as tolerated. Right total hip protocol. 3. Medical management as per the medicine service. 4. Disposition: He is orthopedically stable and acceptable for discharge at any time medically stable. Any orthopedic questions can be directed to [phone].
[2016-09-02] MEDS: ASPIRIN 325 MG ECTAB PO SCH (08:05)
[2016-09-02] MEDS: PRAVASTATIN SOD 20 MG TAB PO SCH (08:05)
[2016-09-02] MEDS: CHOLECALCIFEROL 1000 INTER.UNIT TAB PO SCH (08:05)
--- NOTE | 2016-09-02 12:18 | Progress Note ---
Internal Med Progress Note Date of Service: Sep 02, 2016. Provider Documentation: SUBJECTIVE: Patient is doing well. Mental status- AAOX3, back to baseline No chest pain, SOB, cough, fever, chills, nausea, vomiting, abdominal pain. Off oxygen Tele-no events OBJECTIVE: Vital Signs-as noted below Exam: General-AAOX3, no distress Neck-Supple, No JVD Lungs-AEBE, no wheezing, rhonchi, rales Heart-S1, S2 normal, Murmur + Extremities-S/P Right total hip replacement Neuro-No focal deficits Lab data as noted below. ASSESSMENT & PLAN: IMPRESSION AND PLAN: TRANSIENT CONFUSION : Resolved Likely secondary to post operative status. Patient was discharged on POD # 1 after right total hip replacement. Noted to be confused by family, but by the time he was in ED, he was back to his baseline. AAOX3, today. Did not take narcotics for pain per patient. -CT head - Negative POST OPERATIVE HYPOXIA - Transient --> Resolved Noted to be hypoxic with SaO2 80s in ambulance. No complaints of SOB, cough, chest pain per patient -Off oxygen, On RA within few hours of admission -CXR- no acute abnormalities, CT scan chest- No PE, Area of right middle lobe perihilar consolidation, likely inflammatory, small b/l pleural effusions, bibasal atelectasis, Borderline enlarged hilar LNs, 6 mm Pleural based Rt Upper lobe pulmonary nodule. Recommends : [address] scan-pulm nodule/changes as above Clinically no signs of pneumonia EKG CHANGES WITH ELEVATED TROPONIN : -Done as part of work up for ED visit for transient confusion/Hypoxia post operative day 2. No cardiac symptoms at home, on admission or while in hospital. -EKG on presentation compared to EKG on 08/15/16 shows- T wave flattening in leads AV4, V2-V6; Troponin - 0.547, 0.599, 0.704, 0.630, 0.0623 (Trending down) -Likely demand ischemia in post operative setting with elevated CPK 900s on presentation -Echo- EF 55-60%, Mild LVH, Gd II diastolic dysfunction, Mild MR, TR, Moderate AR, no new wall motion abnormalities PLAN: Likely troponin elevation /EKG changes in post operative settings- demand ischemia as no cardiac symptoms and Echo no new wall motion abnormalities. Counseled about cardiac symptoms and to seek medical attention if develops these symptoms. Agreeable. ELEVATED CPK Presented with CPK of 927-->773-->387 today -IV fluids- ok to discontinue S/P RIGHT HIP REPLACEMENT POD # 3. Done on 08/30/16 -Pain well controlled. Not using narcotics -PT/OT -DVT prophylaxis- Thigh high CHELSEY/ASA 325 mg PO BID -Ortho consulted- appreciate inputs. Cleared for discharge and f/up in 2 weeks HX OF ATRIAL ARRHYTHMIAS -On beta lora -Monitor GI PROPHYLAXIS -On protonix DVT PROPHYLAXIS ASA 325 mg PO BID, Thigh high TEDs CODE STATUS Full code DISPOSITION Eager to be discharged Okay to discharge home today Vital Signs: Date Time Temp Pulse Resp B/P Pulse Ox O2 Delivery O2 Flow Rate FiO2 09/02/16 12:03 99 Nasal Cannula 2.0 09/02/16 10:56 36.6 71 16 137/73 100 Room Air 09/02/16 08:01 99 Nasal Cannula 2.0 09/02/16 07:39 36.6 69 16 143/68 95 Room Air 09/02/16 04:00 36.7 80 17 139/80 93 Room Air 09/02/16 04:00 Room Air 09/02/16 00:00 Room Air 09/02/16 00:00 36.7 73 17 128/77 97 Room Air 09/01/16 20:00 Room Air 09/01/16 19:32 36.5 74 18 129/79 96 Room Air 09/01/16 16:40 99 Nasal Cannula 2.0 09/01/16 16:18 36.6 71 18 113/63 96 Room Air 09/01/16 12:24 94 Room Air Lab Results: Results Past 24 Hours Test 09/01/16 12:55 09/01/16 19:07 09/02/16 01:34 09/02/16 05:25 Range/Units Total Creatine Kinase 676 604 440 387 39-308 U/L Creatine Kinase MB 4.0 3.5 2.6 0.5-3.6 ng/ml Creatine Kinase MB Ratio 0.6 0.6 0.6 0-3.0 Troponin I 0.704 0.630 0.623 0-0.045 ng/ml White Blood Count 5.88 4.8-10.8 K/uL Red Blood Count 3.72 4.7-6.1 M/uL Hemoglobin 11.1 14.0-18.0 g/dL Hematocrit 32.8 42-52 % Mean Corpuscular Volume 88.2 80-100 fL Mean Corpuscular Hemoglobin 29.8 25-34 pg Mean Corpuscular Hemoglobin Concent 33.8 32-36 g/dl RDW Standard Deviation 41.9 36.4-46.3 fL RDW Coefficient of Variation 12.9 11.5-14.5 % Platelet Count 78 130-400 K/uL Mean Platelet Volume 12.8 7.4-10.4 fL Sodium Level 145 136-145 mmol/L Potassium Level 4.1 3.5-5.1 mmol/L Chloride Level 110 98-107 mmol/L Carbon Dioxide Level 27 21-32 mmol/L Anion Gap 8.0 3-11 mmol/L Blood Urea Nitrogen 14 7-18 mg/dl Creatinine 1.10 0.60-1.40 mg/dl Est Creatinine Clear Calc Drug Dose 64.8 ml/min Estimated GFR () 81.2 Estimated GFR (Non- 70.1 BUN/Creatinine Ratio 12.4 10-20 Random Glucose 84 70-99 mg/dl Calcium Level 8.0 8.5-10.1 mg/dl
--- NOTE | 2016-09-02 12:21 | Discharge Instructions ---
Discharge Instructions Date of Service Sep 02, 2016. Admission Reason for Admission: Acute Metabolic Encephalopathy,Hypoxemia Discharge Discharge Diagnosis / Problem: 1. Transient confusion/Hypoxia, post operative state 2. EKG changes Discharge Goals Goal(s): Increase independence, Improve disease control, Therapeutic intervention, Prevent Disease Progression Activity Recommendations Activity Limitations: per Instructions/Follow-up section (per orthopedic surgeon instructions) . Instructions / Follow-Up Instructions / Follow-Up MEDICATION CHANGES 1. Avoid narcotics for pain management. May use tylenol 650 mg q 6 hours as needed for pain 2. No changes in medications If develop chest pain, SOB, do seek medical attention immediately ACTIVITY INSTRUCTIONS Per orthopedic surgeon as prior to admission FOLLOW UP 1. With PCP, Dr Kristal Kapadia on 09/09/16 at 11:10 AM 2. With Orthopedics, Dr Noriega in 2 weeks as prior schedule Current Hospital Diet Patient's current hospital diet: AHA Diet (Heart Healthy) Discharge Diet Recommended Diet: AHA Diet (Heart Healthy), Low Sodium Diet (2gm Na) Pending Studies Studies pending at discharge: no Medical Emergencies . Who to Call and When: Medical Emergencies: If at any time you feel your situation is an emergency, please call 911 immediately. . Non-Emergent Contact Non-Emergency issues call your: Primary Care Provider . . "Provider Documentation" section prepared by Batool Anna. VTE Core Measure Inpt VTE Proph given/why not?: Other Anticoagulation (ASA BID)
--- NOTE | 2016-09-02 12:24 | Discharge Summary ---
Discharge Summary Date of Service Sep 02, 2016. Discharge Summary Admission Date: Sep 01, 2016 at 00:23 Discharge Date: Sep 02, 2016 Discharge Disposition: Home with services Principal Diagnosis: 1. Transient Confusion/Hypoxia post operative status, acute conditions ruled out 2. Elevated CPK 3. EKG changes with elevated troponin, likely demand ischemia with acute NH ruled out 4. S/P Right total hip replacement Procedures: Tele monitoring CXR CT chest CT head IV fluids PT/OT Pending Studies/Follow-Up: Instructions / Follow-Up Instructions / Follow-Up MEDICATION CHANGES 1. Avoid narcotics for pain management. May use tylenol 650 mg q 6 hours as needed for pain 2. No changes in medications If develop chest pain, SOB, do seek medical attention immediately ACTIVITY INSTRUCTIONS Per orthopedic surgeon as prior to admission FOLLOW UP 1. With PCP, Dr Kristal Kapadia on 09/09/16 at 11:10 AM 2. With Orthopedics, Dr Noriega in 2 weeks as prior schedule Medication Reconciliation Continued Medications: Acetaminophen (Tylenol Extra Strength) 500 Mg Tab 1000 MG PO Q8 for 30 Days, #180 TAB Take 3 times per day to lessen pain. Aspirin (Aspirin) 325 Mg Ectab 325 MG PO BID for 45 Days, #90 Take to prevent blood clots. Cholecalciferol (Vitamin D3) 1,000 Unit Tab 1 TAB PO QAM for 90 Days, #90 TAB 3 Refills Lactic Acid (Ammonium Lactate) (Amlactin) 12 % Lot 1 DOSE TOP DAILY PRN for PRN Meloxicam (Mobic) 7.5 Mg Tab 15 MG PO DAILY PRN for Pain, TAB Metoprolol Succ (Toprol Xl) (Toprol-Xl) 25 Mg Tabcr 25 MG PO HS, #30 TAB Oxycodone HCl (Oxycodone HCl) 5 Mg Tab 5 MG PO Q4H PRN for Pain for 30 Days, #60 TAB Take as needed for Pain. Pravastatin (Pravachol ) 20 Mg Tab 20 MG PO QAM, TAB Sildenafil Citrate (Viagra) 100 Mg Tab 100 MG PO PRN, TAB Admission Information HPI (per Admitting provider): HISTORY OF PRESENT COMPLAINT: He is a 66-year-old male, with a significant past medical history including mild mitral aortic regurgitation, elevated PSA, anemia due to chronic blood loss, hyperlipidemia and apparently has been complaining and was noted to be acutely confused this evening. Apparently, he underwent a right total hip replacement on Friday and Friday morning he went home. He slept for about 6 hours at home and did not take any narcotics for the pain and then when he woke up, he was noted to be confused. He cannot remember, but he was not behaving normally as per the family members and the nephew. At that point, he was brought into the Emergency Room. On the way, he was noted to have hypoxemia without any significant shortness of breath and in the ER he was noted to be hypoxic at 83% on room air. He was given oxygen, he was feeling better and his confusion resolved. He denies to have any chest pain, any palpitations or any shortness of breath. No nausea or vomiting. He has pain in the right hip, but no fever, chills or rigors. No problem with urine and/or bowel habits. He denies to have any rash. In the Emergency Room, he was noted to have EKG changes with flattening of the T-waves in II, III, V2 to V4 and his troponin was elevated to 0.5. Also his platelet was noted to be 90 which has been on lower side as usual. CAT scan of the chest did not show any evidence of pulmonary embolism. VBG pO2 was 29, but pH was normal. From that point, he was advised to telemetry unit for continuation of medical care. Hospital Course IMPRESSION AND PLAN: TRANSIENT CONFUSION : Resolved Likely secondary to post operative status. Patient was discharged on POD # 1 after right total hip replacement. Noted to be confused by family, but by the time he was in ED, he was back to his baseline. AAOX3, today. Did not take narcotics for pain per patient. -CT head - Negative POST OPERATIVE HYPOXIA - Transient --> Resolved Noted to be hypoxic with SaO2 80s in ambulance. No complaints of SOB, cough, chest pain per patient -Off oxygen, On RA within few hours of admission -CXR- no acute abnormalities, CT scan chest- No PE, Area of right middle lobe perihilar consolidation, likely inflammatory, small b/l pleural effusions, bibasal atelectasis, Borderline enlarged hilar LNs, 6 mm Pleural based Rt Upper lobe pulmonary nodule. Recommends : [address] scan-pulm nodule/changes as above Clinically no signs of pneumonia EKG CHANGES WITH ELEVATED TROPONIN : -Done as part of work up for ED visit for transient confusion/Hypoxia post operative day 2. No cardiac symptoms at home, on admission or while in hospital. -EKG on presentation compared to EKG on 08/15/16 shows- T wave flattening in leads AV4, V2-V6; Troponin - 0.547, 0.599, 0.704, 0.630, 0.0623 (Trending down) -Likely demand ischemia in post operative setting with elevated CPK 900s on presentation -Echo- EF 55-60%, Mild LVH, Gd II diastolic dysfunction, Mild MR, TR, Moderate AR, no new wall motion abnormalities PLAN: Likely troponin elevation /EKG changes in post operative settings- demand ischemia as no cardiac symptoms and Echo no new wall motion abnormalities. Counseled about cardiac symptoms and to seek medical attention if develops these symptoms. Agreeable. ELEVATED CPK Presented with CPK of 927-->773-->387 today -IV fluids- ok to discontinue S/P RIGHT HIP REPLACEMENT POD # 3. Done on 08/30/16 -Pain well controlled. Not using narcotics -PT/OT -DVT prophylaxis- Thigh high CHELSEY/ASA 325 mg PO BID -Ortho consulted- appreciate inputs. Cleared for discharge and f/up in 2 weeks HX OF ATRIAL ARRHYTHMIAS -On beta lora -Monitor GI PROPHYLAXIS -On protonix DVT PROPHYLAXIS ASA 325 mg PO BID, Thigh high TEDs CODE STATUS Full code DISPOSITION Eager to be discharged Okay to discharge home today Total time spent on discharge = 28 minutes This includes examination of the patient, discharge planning, medication reconciliation, and communication with other providers. Discharge Instructions Goal(s): Increase independence, Improve disease control, Therapeutic intervention, Prevent Disease Progression Activity Recommendations Activity Limitations: per Instructions/Follow-up section (per orthopedic surgeon instructions) . Instructions / Follow-Up Instructions / Follow-Up MEDICATION CHANGES 1. Avoid narcotics for pain management. May use tylenol 650 mg q 6 hours as needed for pain 2. No changes in medications If develop chest pain, SOB, do seek medical attention immediately ACTIVITY INSTRUCTIONS Per orthopedic surgeon as prior to admission FOLLOW UP 1. With PCP, Dr Kristal Kapadia on 09/09/16 at 11:10 AM 2. With Orthopedics, Dr Noriega in 2 weeks as prior schedule Current Hospital Diet Patient's current hospital diet: AHA Diet (Heart Healthy) Discharge Diet Recommended Diet: AHA Diet (Heart Healthy), Low Sodium Diet (2gm Na) Pending Studies Studies pending at discharge: no Medical Emergencies . Who to Call and When: Medical Emergencies: If at any time you feel your situation is an emergency, please call 911 immediately. . Non-Emergent Contact Non-Emergency issues call your: Primary Care Provider . . "Provider Documentation" section prepared by Batool Anna. VTE Core Measure Inpt VTE Proph given/why not?: Other Anticoagulation (ASA BID)
== END 2016-09-02 13:09 | disposition home health service (06) | DRG 206 ==
LOC: ENRESERVTM → ENRESERVDT → C.EDB 21:12 → EDBD 21:12 → C.2E 09-01 00:23
PROVIDERS: ADMIT Internal Medicine; ATTEND Internal Medicine
DX: J98.11 Atelectasis (principal); J90 Pleural effusion, not elsewhere classified; R41.0 Disorientation, unspecified; R09.02 Hypoxemia; E78.5 Hyperlipidemia, unspecified; Z79.82 Long term (current) use of aspirin; Z96.641 Presence of right artificial hip joint; R91.1 Solitary pulmonary nodule; I08.3 Combined rheumatic disorders of mitral, aortic and tricuspid valves

== ENCOUNTER 2024-08-18 05:05 | Observation (INO) ==
--- NOTE | 2024-07-22 13:11 | PAT Medication Instructions ---
Medication Instructions Date of Service July 22, 2024 Home Medications Lactic Acid (Ammonium Lactate) (Amlactin) 1 dose topical DAILY PRN cimetidine 400 mg tablet 400 mg PO BID lisinopril 5 mg tablet 5 mg PO QPM sildenafil 100 mg tablet 100 mg PO .TAKE DIRECTED. PRN E.D. atorvastatin 10 mg tablet 10 mg PO QAM cholecalciferol (vitamin D3) 125 mcg (5,000 unit) tablet (Vitamin D3) 125 mcg PO QAM psyllium husk 3.4 gram/5.4 gram oral powder (Metamucil) 1 tbsp PO QAM verapamil 120 mg tablet,extended release 120 mg PO QAM STOP taking 24 hours before surgery Lactic Acid (Ammonium Lactate) (Amlactin) 1 dose topical DAILY PRN sildenafil 100 mg tablet 100 mg PO .TAKE DIRECTED. PRN E.D. DO NOT take the morning of surgery cholecalciferol (vitamin D3) 125 mcg (5,000 unit) tablet (Vitamin D3) 125 mcg PO QAM psyllium husk 3.4 gram/5.4 gram oral powder (Metamucil) 1 tbsp PO QAM Take morning of surgery With a small sip of water, OTHERWISE NOTHING TO EAT OR DRINK AFTER MIDNIGHT: cimetidine 400 mg tablet 400 mg PO BID atorvastatin 10 mg tablet 10 mg PO QAM verapamil 120 mg tablet,extended release 120 mg PO QAM Take evening before surgery cimetidine 400 mg tablet 400 mg PO BID lisinopril 5 mg tablet 5 mg PO QPM Other Notes If you have any questions please call us at [phone] or [phone] or [phone] or [phone]
--- NOTE | 2024-07-29 11:08 | Anesthesiology Consultation ---
Date of Service July 29, 2024 Assessment & Plan (1) Encounter for pre-operative examination: Chart Review Chart Review: Acceptable Risk for Surgery and Patient seen in Pre Admission Testing Confusion post op with 2017 right DEREJE at [facility]. Readmitted post op day 1 with transient confusion/hypoxia post op status. Acute conditions rule out. "Transient confusion likely secondary to post op status." Recommended Tylenol for pain control per previous records - Patient is NOT an ideal OPJ candidate- currently 23 hour obs Per PAT appt on 07/29/24, no recent illness/disease exposures, illness related symptoms, or recent illness/disease positive tests. Will leave to surgeon's discretion if preop Covid testing needed Last seen by cardio 05/27/23= seen for routine cardiology follow up. Mild to moderate aortic regurgitation. Stable findings. Asymptomatic- repeat ECHO 05/2025. PACs- asymptomatic- continue verapmil. HLD- continue statin. HTN- continue meds. Follow up in one year (Discussed last cardio visit >1 year ago and new onset murmur noted at PAT visit 07/29/[address] Dominguez- patient with stable 2022 ECHO without cardiac limiting symptoms- patient can proceed as scheduled) Per cardio phone note 07/29/24 re: murmur (patient called into cardio office)= "At the time of your most recent echocardiogram in April,, normal found to have mild mitral valve regurgitation and mild aortic valve regurgitation this is mild leaking of both the mitral and aortic valves. I would anticipate that that has what was detected on physical exam. In the absence of new or worsening symptoms such as exertional shortness of breath, or fluid retention, I do not think that the valve issues would have progressed to a point where it would CAUSE SYMPTOMS or interfere with the safe knee surgery. Historically in our office, your heart rate was low. At the time of YOUR most recent EKG performed within the [facility] ([facility] system in May, your heart rate was 46 beats per minute. As long as you are not lightheaded or dizzy this is fine" Right DEREJE 08/29/16= Done under SAB at L3-4 with 1 attempt Teaching & Discussion Pre-Anesthesia Teaching/Discussion Notes: Instructed NPO after midnight before surgery,except medications with 15 cc of water. Medication instructions provided according to the PAT guidelines. History Surgery Operation Date: 08/18/24 10:55 Proposed Procedures p Left Unicompartmental Knee versus - Travis Noriega MD s Total Knee Arthroplasty - Travis Noriega MD Height/Weight Height: 5 ft 8 in Weight: 72.7 kg Allergies Allergy/AdvReac Type Severity Reaction Status Date / Time No Known Drug Allergies Allergy Unknown NKDA Verified 07/21/24 09:48 Medications Home Medications Medication Instructions Recorded Confirmed Last Taken Lactic Acid (Ammonium Lactate) 1 dose topical DAILY PRN PRN ##0 08/15/16 07/21/24 Unknown (Amlactin) cimetidine 400 mg tablet 400 mg PO BID 04/10/20 07/21/24 Unknown lisinopril 5 mg tablet 5 mg PO QPM 04/10/20 07/21/24 Unknown sildenafil 100 mg tablet 100 mg PO .TAKE DIRECTED. PRN 04/10/20 07/21/24 Unknown E.D. atorvastatin 10 mg tablet 10 mg PO QAM 07/21/24 07/21/24 Unknown cholecalciferol (vitamin D3) 125 125 mcg PO QAM 07/21/24 07/21/24 Unknown mcg (5,000 unit) tablet (Vitamin D3) psyllium husk 3.4 gram/5.4 gram 1 tbsp PO QAM 07/21/24 07/21/24 Unknown oral powder (Metamucil) verapamil 120 mg tablet,extended 120 mg PO QAM 07/21/24 07/21/24 Unknown release Past Medical History Medical History Aortic regurgitation mild AR per 04/2023 ECHO- repeat ECHO due 04/2025 Arthritis BPH (benign prostatic hyperplasia) followed by [facility]>[place] Elevated PSA GERD (gastroesophageal reflux disease) well controlled and stable H/O: HTN (hypertension) History of Mohs micrographic surgery for skin cancer right wrist area History of skin cancer Hyperlipidemia Ichthyosis Irregular heartbeat - followed by Dr. Hunter - hx of frequent supraventricular ectopic beats Exercise / Class Metabolic Activity II 4-5 Yardwork/Stairs/Walk up hill (one flight of stairs- no chest pain or SOB ) Past Family History Family History Father Diabetes Hyperlipidemia Hypertension Aunt Diabetes Uncle Diabetes Mother Alzheimer disease Parkinson's disease Other No family history of adverse response to anesthesia Past Surgical History Surgical History (Updated 07/29/24 @ 11:39 by Chandrika Huff PA-C) H/O colonoscopy H/O prostate biopsy History of anesthesia reaction Confusion post op with 2017 right DEREJE at [facility]. Readmitted post op day 1 with transient confusion/hypoxia post op status. Acute conditions rule out. "Transient confusion likely secondary to post op status." Recommended Tylenol for pain control at discharge History of tonsillectomy History of tooth extraction History of total hip arthroplasty right Past Anesthesia History No Hx of Anesthesia Complications (with exception to delayed/transient confusion with 2017 right DEREJE ) and No Family Hx of Anesthesia Complications History of PONV No Hx of PONV and No Hx of Motion Sickness Social History Smoking Status: Never smoker Do You Dip or Chew Tobacco: No Hx Alcohol Use: Yes Alcohol type: beer and hard liquor alcohol intake frequency: a few times a month Hx Substance Use: Yes substance use type: marijuana Last Used Substance Other:: last used>1 week ago (advised) Review of Systems Patient denies chest pain, shortness of breath, dyspnea on exertion, cough, wheezing, palpitations. No hx of seizures, stroke, [place], apnea/snoring. No hx of blood clots or blood transfusions Physical Exam Vital Signs VITALS BP 128/64 P 55 TEMP 98.1 SP02 98% RESP 16 Constitutional no acute distress ENMT Mouth: no TMJ clicking Thyromental Distance: > or= 3.5 Finger Breadths (3.5) Mallampati Class: II Crowns to side teeth and molars Neck + limited neck extension Respiratory normal respiratory effort; no respiratory distress Auscultation: lungs clear to auscultation bilaterally; no wheezes Cardiovascular Rate/Rhythm: regular rate and regular rhythm Heart Sounds: + murmur (II/ murmur ) Vessels: no carotid bruit (Per review of records 2017 pre anesthesia evaluation has II/ systolic murmur noted) Musculoskeletal Spine: + pain with cervical ROM (stiffness ) Extremities: extremities normal to inspection Psychiatric Orientation: alert Lab Results Anesthesia Preop Results Results Anesthesia Widget: WBC 5.61 K/ul (4.8-10.8) 07/29/24 Hgb 13.3 g/dl (14.0-18.0) L 07/29/24 Hct 41.0 % (42.0-52.0) L 07/29/24 Plt 117 K/uL (130-400) L 07/29/24 Na 141 mmol/L (136-145) 07/29/24 K 4.3 mmol/L (3.5-5.1) 07/29/24 Cl 105 mmol/L (98-107) 07/29/24 CO2 30 mmol/L (21-32) 07/29/24 BUN 24 mg/dl (6-23) H 07/29/24 Creat 1.18 mg/dl (0.6-1.4) 07/29/24 Glucose Level 89 mg/dl (70-99(Fasting)) 07/29/24 PT 10.8 Seconds (9.0-12.0) 07/29/24 PTT 28 Seconds (21-31) 07/29/24 INR 1.0 (0.9-1.1) 07/29/24 Blood Type O Positive 07/29/24 Antibody Screen NEGATIVE 07/29/24 Testing Electrocardiogram Date: 07/29/24 Findings: + SB @ (58bpm) Otherwise normal EKG per cardio Chest X-Ray Date: 07/29/24 Findings: + NAD Echocardiogram Date: 04/25/23 EF: 60% LV Function: normal RWMA: + none Other Findings: + diastolic dysfunction (Grade II ); no LVH Mild AR. Mild MR Compared to the previous study dated 05/22/22, no significant TR observed on present study
--- NOTE | 2024-08-14 13:50 | History & Physical Report ---
Date of Service August 14, 2024 Assessment & Plan (1) Left knee DJD: 74-year-old male status post a right hip replacement 8 years ago with advanced left knee medial compartment DJD. He is failed conservative treatment. He would like to have this surgically fixed. Plan: We discussed treatment options with the patient including operative and nonoperative treatment. He is ready to have his knee fixed. We talked about partial knee replacement which I think he is a good candidate for and he would like to proceed along that course. If we get in there and the arthritis is too bad we will do a full knee replacement. There is cements of left partial versus total knee replacement were explained and he understands. Informed consent was obtained. Will keep him in the hospital overnight. He did have some confusion after her surgery in the past and will try and limit the narcotic intake. Likely try and use tramadol for pain. Use aspirin for DVT prophylaxis. (2) History of total hip arthroplasty: (3) Dyslipidemia: History of Present Illness Chief Complaint: . Left medial knee pain. Primary Care Provider: Carlos Arreola DO . The patient is 74-year-old gentleman comportment old who present for treatment of his left knee. Swelling to me from previous right hip replacement done about 8 years ago. Over the past 2 years or so he developed increased pain and discomfort in the medial side of his knee. Is been treated at [facility] with the physical therapy which did not really help at all. He has steroid injection as well as viscosupplementation which helped for only short period of time. Pains all medial. Reports some clicking. He would like to have this fixed. Allergies Allergy/AdvReac Type Severity Reaction Status Date / Time No Known Drug Allergies Allergy Unknown NKDA Verified 07/21/24 09:48 Home Medications Medication Instructions Recorded Confirmed Type Lactic Acid (Ammonium Lactate) 1 dose topical DAILY PRN PRN ##0 08/15/16 07/21/24 History (Amlactin) cimetidine 400 mg tablet 400 mg PO BID 04/10/20 07/21/24 History lisinopril 5 mg tablet 5 mg PO QPM 04/10/20 07/21/24 History sildenafil 100 mg tablet 100 mg PO .TAKE DIRECTED. PRN 04/10/20 07/21/24 History E.D. atorvastatin 10 mg tablet 10 mg PO QAM 07/21/24 07/21/24 History cholecalciferol (vitamin D3) 125 125 mcg PO QAM 07/21/24 07/21/24 History mcg (5,000 unit) tablet (Vitamin D3) psyllium husk 3.4 gram/5.4 gram 1 tbsp PO QAM 07/21/24 07/21/24 History oral powder (Metamucil) verapamil 120 mg tablet,extended 120 mg PO QAM 07/21/24 07/21/24 History release Past Med/Surg History Problem List Encounter for pre-operative examination Left knee DJD Erectile dysfunction Chronic prostatitis BPH (benign prostatic hyperplasia) Premature atrial contraction Dyslipidemia Ichthyosis Elevated PSA (Acute) Medical History Aortic regurgitation mild AR per 04/2023 ECHO- repeat ECHO due 04/2025 Arthritis BPH (benign prostatic hyperplasia) followed by [facility] Elevated PSA GERD (gastroesophageal reflux disease) well controlled and stable History of Mohs micrographic surgery for skin cancer right wrist area History of skin cancer Ichthyosis Irregular heartbeat - followed by Dr. Hunter - hx of frequent supraventricular ectopic beats Hyperlipidemia H/O: HTN (hypertension) Surgical History History of anesthesia reaction Confusion post op with [address] [facility]. Readmitted post op day 1 with transient confusion/hypoxia post op status. Acute conditions rule out. "Transient confusion likely secondary to post op status." Recommended Tylenol for pain control at discharge History of total hip arthroplasty right History of tooth extraction History of tonsillectomy H/O prostate biopsy H/O colonoscopy Family History Father Diabetes Hyperlipidemia Hypertension Aunt Diabetes Uncle Diabetes Mother Alzheimer disease Parkinson's disease Other No family history of adverse response to anesthesia Social History Smoking Status: Never smoker Second Hand Exposure: Yes (as a child); Do You Dip or Chew Tobacco: No; Hx Alcohol Use: Yes Alcohol type: beer and hard liquor Hx Substance Use: Yes Last Used Substance Other:: last used>1 week ago (advised) Preferred Language: Arabic Metallographic Technician Required: No Beliefs That Will Affect Care: None marital status: Current Living Situation: Spouse Feels Safe at Home: Yes Safety Concerns: Feels Safe At This Time Assistive Devices: Glasses Review of Systems All systems reviewed & are unremarkable except as noted in HPI & below. Physical Exam . Physical examination reveals a pleasant healthy-appearing middle-age male. He has an essential tremor. Examination left knee reveals patient ambulates independently. Got varus alignment to his knee. Tender with medial joint line. Small knee effusion. Bony Hypertrophy Medially. Range Of Motion Is Just a Couple Degrees Short of Full Extension to 125 Years of Flexion. Small Knee Effusion. No Instability. Negative Harmony's Test. No Pivot. No Varus or Valgus Instability. Constitutional WD/WN, vitals as above Respiratory normal respiratory effort, lungs clear to auscultation Cardiovascular RRR, no murmur, no edema Gastrointestinal (Abdomen) normal bowel sounds, soft, nontender, no hepatosplenomegaly Results & Data Results & Data Laboratory Results . Diagnostic Findings . X-rays of the left knee were reviewed. Shows advanced medial compartment arthritis. He is got near complete loss of medial joint space of the 40 degree flexion films of his left knee. The rest knee looks pretty good. He is got similar but less severe disease on the right. PG Care Time/CCT Total # of Minutes Spent Total Time Spent with Patient: Total time spent is greater than 50% in coordination of care (as documented) at patient's floor/unit and/or counseling patient: Coding Level of Care Code None Diagnoses Left knee DJD M17.12 History of total hip arthroplasty Z96.649 Dyslipidemia E78.5
[2024-08-18] MEDS: ACETAMINOPHEN 500 MG TAB PO SCH ×2 (05:50→12:31)
[2024-08-18] MEDS: CeleBREX 200 MG CAP PO SCH (05:50)
[2024-08-18] MEDS: LR 60ML/HR IV SCH (05:51)
[2024-08-18] MEDS: FAMOTIDINE 20 MG TAB PO SCH ×2 (05:51→12:32)
[2024-08-18] MEDS: METOCLOPRAMIDE HCL 10 MG TABLET PO SCH (05:51)
[2024-08-18] MEDS: LR 500ML BOLUS, THEN 15ML/HR IV SCH (05:51)
[2024-08-18] MEDS: dexAMETHasone**PF** 10 MG/ML VIAL IV SCH (05:54)
[2024-08-18] MEDS ORDERED: BUPIVACAINE 0.5 % 5 MG/1 ML PF 10ML VIAL ONE (06:27)
[2024-08-18] MEDS ORDERED: BUPIVACAINE 0.25% PF 30 ML VIAL ONE (06:28)
[2024-08-18] MEDS ORDERED: PROPOFOL IV EMULSION 10 MG/ML 20 ML VIAL IV ONE ×3 (06:34→08:07)
[2024-08-18] MEDS ORDERED: DEXAMETHASONE SOD INJ 4 MG/ML VIAL ONE (06:34)
[2024-08-18] MEDS ORDERED: LIDOCAINE 2% 2 ML VIAL/AMP(20MG/ML) INFIL ONE (06:34)
[2024-08-18] MEDS ORDERED: ONDANSETRON INJ 2 MG/ML 2 ML VIAL ONE (06:34)
[2024-08-18] MEDS ORDERED: fentaNYL citrate PF 100 MCG/2 ML VIAL ONE (06:35)
[2024-08-18] MEDS ORDERED: MIDAZOLAM HCL 1 MG/ML 2ML VIAL ONE (06:35)
--- NOTE | 2024-08-18 06:41 | History & Physical Bridge Note ---
Date of Service August 18, 2024 History & Physical Bridge Note I have examined the patient, reviewed the History & Physical and in the interval since the performance of the History & Physical I have noted the following changes of clinical significance: no changes noted
[2024-08-18] MEDS ORDERED: ATROPINE SULFATE 0.1 MG/ML 10ML SYR IV PRN (06:58)
[2024-08-18] MEDS ORDERED: ONDANSETRON INJ 2 MG/ML 2 ML VIAL IV PRN ×2 (06:58→10:40)
[2024-08-18] MEDS ORDERED: ePHEDrine sulfate 50 MG/ML AMP IV PRN (06:58)
[2024-08-18] MEDS: ceFAZolin 2000MG 2,000 MG/15 ML SYR IV SCH (06:58)
[2024-08-18] MEDS ORDERED: fentaNYL citrate PF 100 MCG/2 ML VIAL IV PRN (06:58)
[2024-08-18] MEDS ORDERED: ePHEDrine sulfate 50 MG/ML AMP ONE (07:10)
[2024-08-18] MEDS: ROPIV 0.5% 246mg, Ketorolac 30mg, EPINEPHrine 0.5mg in NSS INFIL SCH (07:32)
[2024-08-18] MEDS: ORTHO JOINT ANESTHETIC ONE (07:32)
[2024-08-18] MEDS ORDERED: SODIUM CHLORIDE 0.9% PF INJ 10 ML VIAL ONE (07:37)
[2024-08-18] MEDS ORDERED: PHENYLEPHRINE 100MCG/ML 5ML SYR ONE (07:38)
[2024-08-18] MEDS: TRANEXAMIC ACID 1,000 MG **IV Intra-op IV SCH (07:50)
--- NOTE | 2024-08-18 08:42 | Operative Report ---
PG Post Operative Report Pre & Post Diagnosis Operation Date: 08/18/24 07:00 Pre-Op Diagnosis: Left Knee Degenerative Joint Disease Post-Op Diagnosis: Left Knee Degenerative Joint Disease I identified the patient and participated in the time-out.: Yes Procedure Operation Date: 08/18/24 07:00 Actual Procedures p Left Unicompartmental Knee Arthroplasty(Left) - Travis Noriega MD Surgeon Travis Noriega MD Network Relations Consultant REMEDIOS Smith Estimated Blood Loss 25 Findings Consistent with Post-Op Diagnosis Operative findings were advanced left knee medial compartment DJD with pretty extensive grade 4 [id number] disease more on the femur and the tibia. The patellofemoral and lateral compartments look well-preserved. Moderate-sized joint effusion. Fixed varus deformity to his knee. ACL was intact. Specimens Left knee sent for pathology. Anesthesia Type Spinal MAC Complications none Disposition Accompanied Patient To Recovery: No Indications Patient is a 74-year-old fairly active gentleman whose had a several year history of increasing left knee pain and discomfort is gotten worse over time. His symptoms localized to the medial side of his knee. X-rays show advanced medial compartment arthritis. He failed conservative measures. He elects to his left partial knee replacement. Description of Procedure Operative implants consists of: 1. Biomet [place] size medium medial femoral component. 2. Biomet [place] left medial size C tibial tray. 3. 3 mm mobile-bearing polyethylene insert. The patient was taken to the op room, identified, placed on the operating table in the supine position. All conductors were appropriately padded. IV antibiotics fibra anesthesia team. Spinal anesthetic and adductor canal block had been provided in the holding area. A left thigh tent was then placed. Left lower extremity was then prepped and draped in usual sterile fashion. The left leg was elevated exsanguinated with use of an Esmarch and turn was plac ed at 300 mmHg. An anterior approach to the knee was then performed through a longitudinal incision beginning at the superior border of the patella and extending just medial to the tibial tubercle. Sharp dissection was got through subcutaneous tissue down the extensor mechanism. The subcutaneous tissue mobilized circumferentially. A medial parapatellar arthrotomy incision was made. The fat pad was resected. There is some slight subperiosteal dissection was carried out medially taking great care to protect the MCL. I then examined the knee and lateral compartment and patellofemoral compartments are well- preserved. Of his ACL was intact. Would like to see with a partial knee replacement. The intercondylar notch osteophyte was removed. The external tibial alignment jig was then placed on the anterior face the tibia. The femur was sized to a size medium and the medium spoon was used. It was attached to the external tibial alignment jig with the 4G clamp. Jig was pinned in place. The proximal tibial cut was made. The tibia sized to a size C. Attention drawn the femur. The distal femur was under sharp drill. Intramedullary estrella was placed. The medium femoral template was then applied and attached to the IM estrella. The holes were drilled for the femoral component. The posterior cutting guide was placed and a posterior cut was made. The knee was flexed. The remnants of the medial meniscus was excised. The 0 spigot was used to milled the distal femur. We then trialed the knee and the 3 feeler gauge felt appropriately in flexion and the 1 in extension. Therefore we went back and milled the femur with a 2 spigot. We trialed the knee again and it fit appropriately with his 3 insert. We elect to place these implants. All trial implants were removed. The femoral prep device was applied and the posterior osteophyte was removed. The anterior milling device was used to create the area for the femoral component. The tibial tray was pinned in place. The toothbrush blade was used to create the keel for the tibial tray. We then trialed the knee 1 more time and 3 insert fit appropriately. We elect to place these implants. Nupathe all trial implants were removed. I irrigated extensively. The single batch [place] G cement was mixed. A left medium femoral component. All extraneous cement was removed. The 4 feeler gauge was placed in the knee was brought out and about 30 degrees of full extension. Once the cement hardened final cement check was then performed. We trialed the knee 1 more time and the 4 just was too tight. We elected to place a 3 insert. A 3 insert was placed.. Excellent motion and appropriate tracking and stability. Attention drawn toward closing. The injected locally with 100 cc of Ortho mix. The tourniquet was let down for turn time 57 minutes. Hemostasis assured with electrocautery. Extensor [place] closed with #1 Vicryl suture in a [id number] fashion. Extensor [place] checked found to be intact. Subcutaneous tissue then closed with 2 Dexon suture in a buried interrupted fashion skin was closed skin carter. Leg was then cleaned and dried and sterile dressed with Xeroform, 4 fours, sterile cast padding, Geronimo bandage were applied. The patient was then transferred to the recovery room in stable condition. Patient tolerated procedure well and there were no complications. Linwood Smith, my physician special ed assistant, was present for the entire procedure. His assistance was essential and required for appropriate patient positioning, prepping and draping, surgical exposure, performing the technical details of the operation, placement the implants, closure of the wound, and placement of the sterile bandage. I attest to the content of the Intraoperative Record and any orders documented therein. Any exceptions are noted below.
--- NOTE | 2024-08-18 08:53 | XRay Report ---
XR knee LT 1 or 2V routine CLINICAL HISTORY: Surgical Post Op COMPARISON: None FINDINGS: Left medial hemiprosthesis shows no hardware complication. There is expected soft tissue g as. Skin carter are present. IMPRESSION: Unremarkable postoperative exam. ACT 112: Negative or not required by law. Electronically signed by: James Acosta M.D. 08/18/2024 8:52 AM
--- OUTSIDE RECORDS SUMMARY | 2024-08-18 09:12 | External Medical Summary | Summary of Care ---
Author Name Unknown Organization [facility] Address [address] [facility] [place] [address] Phone [phone] Care Team Providers Care Temperature Regulator Name Role Phone Unique Arreola DO Primary Care Provider Reason for Visit * Reason Comments Medication Refill Encounter Details Date Type Department Care Team (Late st Contact Info) Description 08/05/2024 Refill Family Practice [facility] [address] [place] [address] Unique Arreola DO [address] [place] [address] Premature atrial contractions; Dyslipidemia, goal LDL below 100; HTN, goal below 140/90 Allergies No known active allergiesdocumented as of this encounter (statuses as of 08/05/2024) Medications VITAMIN D 1000 UNIT PO CAPS 1 daily Active [employer] ULTRA SYSTEM W/DEVICE KITIndications:A bnormal blood chemistry Use up to four times a day as directed 1 Kit 0 1 Active FitfullyTOUCH ULTRA TEST STRPIndications: Abnormal blood chemistry Use up to four times a day as directed 100 Strip 11 1 Active ONETOUCH ULTRASOFT LANCETS MISCIndications: Abnormal blood chemistry Use up to four times a day as directed 1 Box 11 1 Active LACLOTION 12 % EX LOTNIndications: Ichthyosis congenita APPLY TO SKIN NEEDED 2400 mL 2 09/23/201 1 Active Acetaminophen 325 MG Oral Capsule Take 2 Tablets by mouth every 6 hours as needed for Pain. Active Cimetidine 400 MG Oral Tablet (Tagamet)Indicat ions:Heartburn TAKE ONE TABLET BY MOUTH EVERY MORNING AND ONE TABLET BEFORE BEDTIME 180 Tablet 3 05/01/2024 10:55 AM EST 4 10/21/19 25 Active Triamcinolone Acetonide 0.1 % External Ointment (Aristocort)Domenica cations:Rash and nonspecific skin eruption Apply topically to affected area 2 times a day. To affected areas for 7-10 days. 80 g 12/22/2023 1:08 PM EDT 4 Active Sildenafil Citrate 100 MG Oral TabletIndication s:Impotence of organic origin Take 1 Tablet by mouth daily as needed for Erectile Dysfunction. 20 Tablet 4 Active Verapamil HCl ER 120 MG Oral Tablet Extended Release (Isoptin SR)Indications:P remature atrial contractions Take 1 Tablet by mouth in the morning. 90 Tablet 2 5 Active Atorvastatin Calcium 10 MG Oral Tablet (Lipitor)Indicat ions:Dyslipidemi a, goal LDL below 100 TAKE ONE TABLET BY MOUTH EVERY DAY 90 Tablet 2 5 Active Lisinopril 5 MG Oral Tablet (Prinivil)Indica tions:HTN, goal below 140/90 TAKE ONE TABLET BY MOUTH EVERY DAY 90 Tablet 2 5 Active Verapamil HCl ER 120 MG Oral Tablet Extended Release (Isoptin SR)Indications:P remature atrial contractions Take 1 Tablet by mouth in the morning. 90 Tablet 3 05/01/2024 10:55 AM EST 4 08/05/19 25 Discontin ued(Refil l) Atorvastatin Calcium 10 MG Oral Tablet (Lipitor)Indicat ions:Dyslipidemi a, goal LDL below 100 TAKE ONE TABLET BY MOUTH EVERY DAY 90 Tablet 1 05/01/2024 10:55 AM EST 4 08/05/19 25 Discontin ued(Refil l) Lisinopril 5 MG Oral Tablet (Prinivil)Indica tions:HTN, goal below 140/90 TAKE ONE TABLET BY MOUTH EVERY DAY 90 Tablet 1 05/01/2024 10:55 AM EST 4 08/05/19 25 Discontin ued(Refil l) documented as of this encounter (statuses as of 08/05/2024) Active Problems Problem Noted Date Diagnosed Date Hx of nonmelanoma skin cancer 04/05/2024 Overview (04/05/2024): Keratoacanthoma (R forearm 04/15) H/O dysplastic nevus 03/29/2024 Overview (03/29/2024): Mildly atypical nevus (chest) Hypertensive kidney disease with stage 3a chronic kidney disease 11/25/2023 Type 2 diabetes mellitus wit h stage 3a chronic kidney disease, without long-term current use of insulin 11/25/2023 Chronic kidney disease, stage 3a 11/03/2023 Overview: Per CKD protocol Diabetes mellitus without complication 2 HTN, goal below 140/90 10/31/2017 Benign prostatic hyperplasia with urinary hesita ncy 09/25/2017 Moderate aortic regurgitation 09/24/2016 Premature atrial contractions 12/31/2013 Anemia due to chronic blood loss 01/02/2011 Elevated prostate specific antigen (PSA) 010 Essential tremor 07/05/2009 Ichthyosis congenita Dyslipidemia, goal LDL below 100 Overview (06/01/2009): Per Lipid Taxonomy. documented as of this encounter (statuses as of 08/05/2024) Resolved Problems Problem Noted Date Diagnosed Date Resolved Date Mild mitral and aortic regurgitation 12/31/2013 09/24/2016 Dyslipidemia, goal to be determined 06/01/2009 10/17/2017 Overview (06/01/2009): Per Lipid Taxonomy. ADVANCE DIRECTIVE INFORMATION 10/02/2006 04/26/2024 Overview (10/02/2006): Information given to patient. ROUTINE MEDICAL EXAM 10/07/2001 011 documented as of this encounter (statuses as of 08/05/2024) Immunizations Name Administration Dates Next Due COVID-19 mRNA, LNP-s, No Pre serve, 2-Dose Series (Moderna) 08/21/2020,07/24/2020 COVID-19, mRNA, LNP-s, PF, B ooster, 100mcg/0.5mg (Moderna) 02/21/2021 Pneumococcal Conjugate Vacc, 13 Valent (Prevnar) 09/25/2017 Pneumococcal Polysaccharide PPV23 (Pneumovax) 09/29/2018 RSV Vac., Bivalent, Perfusio n F, Pf,0.5 Ml (Abrysvo) 05/20/2023 Season Influenza, Quad, PF, Adjuvanted, 65+ Yrs, IM (FLUAD) 09/05/2020 Seasonal Influenza Vac., MDV , IM, 0.5 mL (Fluzone) 04/14/2014,05/11/2013,07/07/2012,06/05,07/31/2009,05/03/2006 Seasonal Influenza, High Dos e, Trivalent, PF, IM (Fluzone HD) 04/15/2024 Seasonal Influenza, PF, 6 M & above, IM , (FluLaval or Fluzone) 03/27/2018,04/29/2017 Seasonal Influenza, Quadriva lent Hd (Fluzone Hd) 03/19/2023,04/12/2022,03/13/2021 Seasonal Influenza, Quadriva lent, No Preserve, IM 03/29/2019,03/27/2018,04/29/2017,05/10,05/11/2015,04/14/2014,05/11/2013 ,07/07/2012,06/05/2011,07/31/2009,04/23 Seasonal Influenza, Trivalen t, Adjuvanted, 65+ YRS, PF, (Fluad) 03/29/2019 TD - Tetanus/Diptheria (ADULT) 09/29/2018 TD, Preservative Free 09/29/2018 TDAP, Age 7 and older, IM (Adacel) 05/13/2008 Varicella Zoster Vaccine (Adult) 07/10/2015 Zoster Vaccine Recombinant (Shingrix) 03/08/2020 ,09/29/2018 documented as of this encounter Social History Tobacco Use Types Packs/Day Years Used Date Smoking Tobacco: Never Smokeless Tobacco: Never Alcohol Use Standard Drinks/Week Comments Yes 0 (1 standard drink = 0.6 oz pur e alcohol) occasional PHQ-2 Answer Date Recorded PHQ Adult Total Score 1 12/30/2023 Hunger Vital Sign Answer Date Recorded Worried About Running Out of Food in the Last Ye ar Never true 03/08/2020 Ran Out of Food in the Last Year Never true 03/08/2020 Utilities Answer Date Recorded Do you have trouble paying y our heating, water, or electric bill? (Adult - for ages 18 years and over) Not on file 12/09/2023 Is your family able to pay t he heat, water, or electric bill? (Household - for ages 0-17 years) Not on file 12/09/2023 Does your family have access to good internet? (Household - for ages 0-17 years) Not on file 12/09/2023 Social Connections Answer Date Recorded How often do you feel lonely or isolated from those around you? 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 - 08/05/2024 3:15 PM ESTSigned Prescriptions: Disp Refills Verapamil HCl ER 120 MG Oral Tablet Extend*90 Tab*2 Sig: Take 1 Tablet by mouth in the morning. Authorizing Provider: UNIQUE ARREOLA Ordering User: BETTIE BHAGAT Atorvastatin Calcium 10 MG Oral Tablet (Li*90 Tab*2 Sig: TAKE ONE TABLET BY MOUTH EVERY DAY Authorizing Provider: UNIQUE ARREOLA Ordering User: MARIA EUGENIA BHAGAT Lisinopril 5 MG Oral Tablet (Prinivil) 90 Tab*2 Sig: TAKE ONE TABLET BY MOUTH EVERY DAY Authorizing Provider: UNIQUE ARREOLA Ordering User: BETTIE BHAGAT * Telephone Encounter - User, [facility] - 08/05/2024 8:23 AM ESTPending Prescriptions: Disp Refills Verapamil HCl ER 120 MG Oral Tablet Extend*90 Tab*3 Sig: Take 1 Tablet by mouth in the morning. Atorvastatin Calcium 10 MG Oral Tablet (Li*90 Tab*1 Sig: TAKE ONE TABLET BY MOUTH EVERY DAY Lisinopril 5 MG Oral Tablet (Prinivil) 90 Tab*1 Sig: TAKE ONE TABLET BY MOUTH EVERY DAY * Telephone Encounter - User, [employer] - 08/05/2024 8:23 AM ESTPending Prescriptions: Disp Refills Verapamil HCl ER 120 MG Oral Tablet Extend*90 Tab*3 Sig: Take 1Tablet by mouth in the morning. Atorvastatin Calcium 10 MG Oral Tablet (Li*90 Tab*1 Sig: TAKE ONE TABLET BY MOUTH EVERY DAY documented in this encounter Plan of Treatment Upcoming Encounters Date Type Department Care Team (Late st Contact Info) Description 08/26/2024 9:00 AM EST Office Visit Orthopaedics [facility] [address] [place] [phone] Sunil Thornton PA-C [address] [place] [phone] 09/02/2024 9:00 AM EDT Office Visit [facility] [address] [place] [address] Sunil Thornton PA-C [address] [place] [phone] 09/09/2024 9:00 AM EDT Office Visit [facility] [address] [place] [phone] Sunil Thornton PA-C [address] [place] [address] 01/24/2025 11:45 AM EDT Hospital Encounter ENDO [facility], Endoscopy Room [facility] [address] [place] [phone] Jaqui Nieto DO [address] [place] [address] 01/24/2025 11:45 AM EDT - 01/24/2025 12:15 PM EDT Surgery ENDO [facility], Endoscopy Room [facility] [address] [place] [phone] Jaqui Nieto DO [address] [place] [address] COLONOSCOPY FLEXIBLE PROXIMAL DIAGNOSTIC 04/07/2025 10:20 AM EDT Office Visit [facility] [address] [place] [phone] Niharika Hebert PA-C [address] [place] [address] [place] [address] 04/19/2025 8:00 AM EDT Office Visit Family Practice [facility] [address] [place] [address] Unique Arreola DO [address] [place] [address] 04/19/2025 11:00 AM EDT Office Visit Neurology [facility] [address] [place] [address] Ofelia Jo PA-C [address] [facility] [place] [id number] Scheduled Procedures Name Priority Associated Diagnoses Date/Ti me COLONOSCOPY FLEXIBLE PROXIMAL DIAGNOSTIC Recall Special screening for malignant neoplasms, colon History of colonic polyps 01/24/2025 11:45 AM EDT Health Maintenance Due Date Last Done Comments Cologuard 02/15/1996 Sigmoidoscopy 02/15/1996 Adult Wellness Visit 2017 Colonoscopy 06/01/2023 06/01/2013, 06/01/2013 COVID-19 Vaccine ( season) 2024 02/21/2021, 08/21/2020, 07/24/2020 Diabetic Foot Exam 05/01/2024 05/01/2023, 03/19/2022 Diabetic Eye Exam 08/07/2024 08/07/2023, , 08/07/2023, Additional history exists GFR 08/24/2024 02/25/2024, 0711/2023, 09/30/2023, Additional history exists HbA1c 08/24/2024 02/25/2024, 04/0 02/2024, 04/14/2023, Additional history exists Depression Screening 12/29/2024 12/30/2023 CKD HGB USE SMARTSET 77748 02/24/202502/24, 02/25/2024, 04/14/2023, Additional history exists CKD PHOS USE SMARTSET 81113 02/24/2025 02/25/2024 Colorectal Cancer Screening 03/19/2025 Fecal Occult Blood Test 03/19/2025 03/19/20 24, 03/19/2024, 02/20/2023, Additional history exists Albumin/Creatinine Ratio 05/12/2025 024, 04/14/2023, 12/19/2022, Additional history exists DTap/Tdap Vaccines (4 - Td or Tdap) 09/29/2028 09/29/2018, 09/29/2018, 05/13/2008 Lipid Panel 02/24/2029 02/25/2024, 03/24, 12/19/2022, Additional history exists Pneumococcal Vaccine: 50+ Years Completed 09/29/2018, 09/25/2017 Zoster Vaccines Completed 03/08/2020, 02/2019, 07/10/2015 Influenza Vaccine (FLU shot) Completed , 03/19/2023, 04/12/2022, Additional history exists HPV (Gardasil) Vaccine Aged Out No lo nger eligible based on patient's age to complete this topic Hepatitis B Vaccine Aged Out No longe r eligible based on patient's age to complete this topic MENINGOCOCCAL (MENACTRA/MENVEO) Aged Out No longer eligible based on patient's age to complete this topic documented as of this encounter Medical Devices Not on filedocumented as of this encounter Visit Diagnoses Diagnosis Premature atrial contractions Supraventricular premature beats Dyslipidemia, goal LDL below 100 Other and unspecified hyperlipidemia HTN, goal below 140/90 Unspecified essential hypertension Special screening for malignant neoplasms, colon History of colonic polyps Personal history of colonic polyps documented in this encounter Care Teams Temperature Regulator Relationship Specialty Start Date End Date Unique Arreola DO [facility] [place] [id number] PCP - General Family Medicine 03/16/24 documented as of this encounter
[2024-08-18] MEDS ORDERED: NON-FORMULARY MEDICATION (Sildenafil 100 mg tablet) PO PRN (10:40)
[2024-08-18] MEDS ORDERED: MAGNESIUM HYDROXIDE SUSP 30 ML UDC PO PRN (10:40)
[2024-08-18] MEDS ORDERED: bisacodyL 10 MG SUPP PR PRN (10:40)
[2024-08-18] MEDS ORDERED: NALOXONE HCL 0.4 MG/1 ML VIAL/CARP IV PRN (10:40)
[2024-08-18] MEDS ORDERED: ALUMINUM/MAGNESIUM SUSP 30 ML UDC PO PRN (10:40)
[2024-08-18] MEDS ORDERED: HYDROmorphone INJ 0.5 MG/0.5 ML SYR IV PRN (10:40)
[2024-08-18] MEDS ORDERED: METOCLOPRAMIDE HCL INJ 5 MG/ML 2 ML VIAL IV PRN (10:40)
[2024-08-18] MEDS ORDERED: traMADol HCL 50 MG TABLET PO PRN (10:40)
[2024-08-18] MEDS: DOCUSATE SODIUM 100 MG CAP PO SCH (12:32)
[2024-08-18] MEDS: ASPIRIN 81 MG ECTAB PO SCH (12:32)
[2024-08-18] MEDS: CHOLECALCIFEROL 125 MCG (5,000 UNITS) TAB PO SCH (12:32)
[2024-08-18] MEDS: SENNA 8.6 MG TAB PO SCH (12:32)
[2024-08-18] MEDS: KETOROLAC TROMETHAMINE 15 MG/ML VIAL IV SCH (12:32)
[2024-08-18] MEDS: ATORVASTATIN 10 MG TAB PO SCH (12:33)
[2024-08-18] MEDS: VERAPAMIL HCL 120 MG TABCR PO SCH (12:33)
[2024-08-18] MEDS: TAMSULOSIN HCL 0.4 MG CAP PO SCH (12:33)
[2024-08-18] MEDS: MULTIVITAMIN TAB PO SCH (12:33)
[2024-08-18] MEDS ORDERED: AMMONIUM LACTATE 12% LOTION 225 GM BTL EXT PRN (13:16)
[2024-08-18] MEDS: TRANEXAMIC ACID / 0.7% NACL 1,000 MG/100 ML BAG IV SCH (14:45)
[2024-08-18] MEDS: ceFAZolin 1000MG 1,000 MG/7.5 ML SYR IV SCH (14:45)
--- NOTE | 2024-08-18 15:56 | Anesthesiology Progress Note ---
Date of Service August 18, 2024 Anesthesia Post Procedure Vital Signs Vital Signs: Temp Pulse Pulse Resp BP Pulse Ox O2 Del Method 08/18/24 13:41 36.4 C L 58 L 16 124/54 L 94 Room Air 08/18/24 12:30 36.3 C L 62 16 119/57 L 99 Room Air 08/18/24 11:38 36.3 C L 53 L 17 119/53 L 100 Room Air 08/18/24 11:05 36.2 C L 54 L 16 109/52 L 99 Room Air 08/18/24 10:35 36.3 C L 55 L 16 108/48 L 99 Room Air 08/18/24 10:15 54 L 14 109/45 L 97 Room Air 08/18/24 10:00 56 L 20 106/48 L 97 Room Air 08/18/24 09:45 54 L 15 107/47 L 96 Room Air 08/18/24 09:30 60 14 102/43 L 96 Room Air 08/18/24 09:15 60 20 103/48 L 96 Room Air 08/18/24 09:05 36.4 C L 61 20 98/45 L 95 Room Air 08/18/24 08:55 59 L 15 99/42 L 96 Room Air 08/18/24 08:45 60 18 88/43 L 98 Oxymask 08/18/24 08:35 36.4 C L 68 14 85/40 L 100 Oxymask 08/18/24 05:39 36.8 C 62 16 138/62 97 Room Air O2 Flow Rate 08/18/24 13:41 08/18/24 12:30 08/18/24 11:38 08/18/24 11:05 08/18/24 10:35 08/18/24 10:15 08/18/24 10:00 08/18/24 09:45 08/18/24 09:30 08/18/24 09:15 08/18/24 09:05 08/18/24 08:55 08/18/24 08:45 3 08/18/24 08:35 6 08/18/24 05:39 Pain Intensity Left Knee: Pain Intensity: 4 Transfer of Care Handoff Completed per policy Notes Mental Status: alert / awake / arousable and participated in evaluation Patient Amnestic to Procedure: Yes Nausea / Vomiting: adequately controlled Pain: adequately controlled Airway Patency, RR, SpO2: stable & adequate BP & HR: stable & adequate Hydration State: stable & adequate Neuraxial Anesthesia: was administered and sensory block is resolving Anesthetic Complications: no major complications apparent and Pt Satisfied with anesthetic care
[2024-08-18] MEDS: ASCORBIC ACID 500 MG TAB PO SCH (18:20)
[2024-08-18] MEDS: lisinopril 5 MG TAB PO SCH (20:26)
[2024-08-18] MEDS ORDERED: SENNA 8.6 MG TAB PO SCH (21:00)
[2024-08-19 06:33] LABS: Hematocrit (blood only) 34.5 % (42.0-52.0); Hemoglobin 11.6 g/dl (14.0-18.0); Mean Corpuscular Hemoglobin 29.1 pg (25.0-34.0); Mean Corpuscular Hgb Conc 33.6 g/dL (32.0-36.0); Mean Corpuscular Volume 86.5 fL (80.0-100.0); Mean Platelet Volume 12.9 fL (9.4-12.4); Platelet Count 110 K/uL (130-400); RDW Coefficient of Variation 12.4 % (11.5-14.5); RDW Standard Deviation 39.2 fL (36.4-46.3); Red Blood Count 3.99 M/uL (4.70-6.10); White Blood Count 12.35 K/ul (4.8-10.8)
--- NOTE | 2024-08-19 06:59 | Orthopedic Progress Note ---
Date of Service August 19, 2024 Assessment & Plan (1) Status post left partial knee replacement: PT/OT, wbat dvt prophylaxis: teds, scd's, aspirin discharge planning: home with home health today after PT discussed with Dr Noriega. Subjective .74 year old patient POD 1 from left partial knee replacement. Doing well. Really hasn't had pain. No other complaints. Review of Systems All systems reviewed & are unremarkable except as noted in HPI & below. Physical Exam .alert and oriented. NAD. Left leg: dressing clean, dry, intact. able to do SLR, DF, PF. NVI Results & Data Results & Data Laboratory Results . Diagnostic Findings . PG Care Time/CCT Total # of Minutes Spent Total Time Spent with Patient: Total time spent is greater than 50% in coordination of care (as documented) at patient's floor/unit and/or counseling patient: Coding Level of Care Code 88440 Post Operative Follow-Up Diagnoses Status post left partial knee replacement Z96.652
[2024-08-19 07:04] LABS: BUN Creatinine Ratio 20.3 (10-20); Creatinine Clr Calc Pharmacy 49.7 ml/min; Potassium 4.3 mmol/L (3.5-5.1)
[2024-08-19] MEDS: dexAMETHasone 10 MG in SYRINGE 0 ML IV SCH (07:49)
[2024-08-19] MEDS: PSYLLIUM or GUAR GUM FIBER 4GM PACKET PO SCH (07:56)
--- NOTE | 2024-08-23 08:31 | Discharge Summary ---
Date of Service August 23, 2024 Admission HPI (Per Admitting) . The patient is 74-year-old gentleman comportment old who present for treatment of his left knee. Swelling to me from previous right hip replacement done about 8 years ago. Over the past 2 years or so he developed increased pain and discomfort in the medial side of his knee. Is been treated at [facility] with the physical therapy which did not really help at all. He has steroid injection as well as viscosupplementation which helped for only short period of time. Pains all medial. Reports some clicking. He would like to have this fixed. Admission Exam (Per Admitting) . Physical examination reveals a pleasant healthy-appearing middle-age male. He has an essential tremor. Examination left knee reveals patient ambulates independently. Got varus alignment to his knee. Tender with medial joint line. Small knee effusion. Bony Hypertrophy Medially. Range Of Motion Is Just a Couple Degrees Short of Full Extension to 125 Years of Flexion. Small Knee Effusion. No Instability. Negative Harmony's Test. No Pivot. No Varus or Valgus Instability. Principal Diagnosis Same as "Discharge Diagnosis" noted below under Discharge Instructions. Discharge Exam .alert and oriented. NAD. Left leg: dressing clean, dry, intact. able to do SLR, DF, PF. NVI Discharge Data Procedures Performed Operation Date: 08/18/24 07:00 Actual Procedures p Left Unicompartmental Knee Arthroplasty(Left) - Travis Noriega MD Ordered Studies 08/18/24 05:00 US - OR guided needle placemen Routine Hospital Course (1) Status post left partial knee replacement: This is a 74 year old patient admitted on 08/18/24 and underwent partial knee replacement. He tolerated the procedure well and there were no complications. Transferred to the PACU post op and later to the orthopedic floor for further care. He was given ancef for antibiotic prophylaxis. He was also given CHELSEY stockings, SCDs, and aspirin for DVT prophylaxis. Hemoglobin, hematocrit, and vital signs were monitored during his hospital stay and remained stable. Did not require any blood transfusions. There were no complications during his hospital stay. By post op day #1 the patient was tolerating a regular diet, pain was reasonably controlled with oral pain medicine, and he was participating in physical therapy. On post op day #1 the patient was discharged home and set up with home health care. He was given printed discharge instructions including prescriptions for extra strength tylenol, aspirin, zofran, senokot, flomax, and tramadol. Continue physical therapy, weight bearing as tolerated. Continue CHELSEY stockings. Follow up approximately 2 weeks post op or sooner if there are problems or conc erns. PG Care Time/CCT Total # of Minutes Spent Total Time Spent with Patient: Total time spent is greater than 50% in coordination of care (as documented) at patient's floor/unit and/or counseling patient: Discharge Plan Discharge Items Patient Disposition: Home - Home Health Services Reason For Visit: Left Knee Osteoarthritis Discharge Diagnosis: Left Partial Knee Replacement Activity: Per Instructions section Non-emergency contact: Surgeon Call non-emergency contact if: you have any medication questions Follow-up/Referrals: Carlos Arreola DO [Primary Care Provider] - Diet: Regular Addtl Attending Provider Instructions: ACTIVITY RECOMMENDATIONS: Diet: * You may resume previous diet. Physical Therapy: * You will go to physical therapy three times each week for four to six weeks after your surgery in order to regain your knee range of motion and to retrain your knee to work properly. * It is just as important to make sure you are getting your knee perfectly straight as it is to regain your knee bend. * Taking a pain pill an hour before therapy can help you have a more productive and comfortable therapy session. Home Exercise: * You were shown a series of exercises (heel props, heel slides, etc.) in the hospital. Do these exercises three to four times each day including the exercises you were shown in physical therapy. Walking: * Get up and walk several times each day. For the first four weeks, try not to stand or walk for more than one hour at a time. If you do stand or walk for more than one hour, you will not hurt anything, but your knee and leg will likely swell. * As you feel comfortable, you may change from the walker or crutches to a cane and then to independent walking. MEDICATIONS: New Medicine: * You will likely be taking one or more of these medications: 1. Tramadol - A quick and shorter-acting pain medication. Take one to two tablets every six hours to lessen your pain. 2. Aspirin - Thins your blood to lessen the chance of forming a blood clot. * The most common side effects of pain medicine and iron are nausea and constipation. If nausea or constipation is too much of a problem or if you have any questions about your new medicines or doses, call [facility] at . We will try to help you manage these issues. "VERY IMPORTANT TO READ AND REVIEW" Pain: * The immediate post-operative period after knee replacement surgery is often quite painful. * You are given a prescription for pain medicine. You should take it, as directed, when you need it, especially before physical therapy and before going to bed. Pain that interferes with sleep is very common and can last several months. * You will likely need pain medicine for the first four to six weeks. It will not stop all of the pain. The pain will lessen and as you feel better, you may change to milder pain medicine such as Tylenol. * The most common side effects of pain medicine are nausea and constipation, so don't take more than you need. SPECIAL CARE INSTRUCTIONS: TEDs/Elastic Stockings: * The white elastic stockings help limit swelling and prevent blood clots from forming in your legs. The more you wear them, the more they work. * Wear them for six weeks after knee replacement surgery and four weeks after partial knee replacement. Incision Site Care: * Remove dressing postoperative day 2 and then shower. Keep direct shower pressure off the incision site. * After showering, cover carter with dry gauze and change daily or more frequently if the dressing is getting saturated with drainage. * Use the CHELSEY stockings to hold dressing in place. DO NOT apply tape on the skin. * May completely stop using bandage if wound is dry and no drainage * Carter are removed between 2 and 3 weeks post-op. If your follow-up appointment is made before 2 weeks, please have your appointment re- scheduled. It is too early to remove the carter. Prevention of Infection: * Take antibiotics one hour before any dental cleaning, dental work, urological procedure, gastrointestinal procedure or any invasive surgery in order to prevent your new joint from getting infected. * You may get the antibiotics from the doctor performing the procedure or you may call our office at [phone] before and we will call in a prescription to the pharmacy of your choice. Things to Watch For: * Drainage from the incision site that occurs more than one week after your surgery. * Severely increased knee/leg pain or swelling. * Increased redness at the incision site. * Fever above 102 degrees Fahrenheit. * Unusual chest pain or shortness of breath. * Unusual pain or burning with urination. Call [facility] at [phone] with any of the above problems or if you have any questions about your medicines or recovery. FOLLOW UP VISIT: Make an appointment to see your doctor for approximately two weeks after surgery for a progress check and staple removal by calling the office at [phone]. Pending Studies at Discharge: No Stand-Alone Forms: My [facility], Smoking Cessation Medications and DC Order Prescriptions: Continued Lactic Acid (Ammonium Lactate) (Amlactin) 12 % LOT 1 dose Topical DAILY MDD . PRN (Reason: PRN) Qty: 0 tramadol 50 mg tablet 50 - 100 mg PO Q8H PRN (Reason: pain) Qty: 40 0RF Rx Instructions: Take as needed for pain. Do not take more than 6 tablets per day ondansetron 4 mg tablet,disintegrating 4 mg PO Q8 PRN (Reason: nausea) Qty: 20 1RF Rx Instructions: Take as needed for nausea sennosides [Senokot] 8.6 mg tablet 8.6 mg PO BID 14 Days Qty: 28 0RF Rx Instructions: Take two times a day to prevent/treat constipation acetaminophen [Tylenol Extra Strength] 500 mg tablet 1,000 mg PO TID 30 Days Qty: 180 0RF Rx Instructions: Take 3 times per day to lessen pain. aspirin [Daniel Low Dose Aspirin] 81 mg tablet,delayed release (DR/EC) 81 mg PO BID 45 Days Qty: 90 0RF Rx Instructions: Take to prevent blood clots. tamsulosin [Flomax] 0.4 mg capsule 0.4 mg PO DAILY Qty: 7 0RF Rx Instructions: Begin night BEFORE surgery to prevent urinary retention sildenafil 100 mg tablet 100 mg PO .TAKE DIRECTED. PRN (Reason: E.D.) cimetidine 400 mg tablet 400 mg PO BID Rx Instructions: administer with meals lisinopril 5 mg tablet 5 mg PO QPM verapamil 120 mg Tablet Extended Release 120 mg PO QAM atorvastatin 10 mg Tablet 10 mg PO QAM cholecalciferol (vitamin D3) [Vitamin D3] 125 mcg (5,000 unit) Tablet 125 mcg PO QAM Metamucil 3.4 gram/5.4 gram Powder 1 tbsp PO QAM Rx Instructions: mix into at least 8 oz of water or juice before administering Admission Data Admit Date/Time: 08/18/24 08:34 Attending Provider: Travis Noriega Admit Provider: Travis Noriega Primary Care Provider: Carlos Arreola Other Providers: [facility],Home Health Other Interventions: Discharge Summary Assessment (RN) Last Done: 08/19/24 09:47
== END 2024-08-19 10:56 | disposition home health service (06) ==
LOC: ASU 05:05 → PACUINP 05:05 → 3E 10:34